=== PATIENT | male | born 1950 | race Caucasian/White ===

== ENCOUNTER 2019-11-20 10:07 | Inpatient (IN) | payer MEDICARE, BC ==
--- NOTE | 2019-11-20 11:50 | EDM.PDOC ---
ED HPI GENERAL MEDICAL PROBLEM - General Chief Complaint: Respiratory Problem Stated Complaint: COVID + HAVING DIABETIC ISSUES Time Seen by Provider: 11/20/19 11:32 Source of Information: Reports: Patient, RN Notes Reviewed History Limitations: Reports: No Limitations - History of Present Illness INITIAL COMMENTS - FREE TEXT/NARRATIVE: Patient is a 69-year-old male who presents to the ED for the evaluation of his ongoing COVID-19. Patient notes he was diagnosed with COVID-19 on November 09, and states he has been having a dry cough, shortness of breath, low-grade fever ever since then. He is also experiencing decreased appetite and generalized weakness as he states he is just not hungry. He is a type II diabetic, his blood glucose was 185 at time of triage here. Temperature is 99.7 F, patient's pulse is 84 bpm, respiratory rate is 18, blood pressure is 150/75, and his O2 sats are 91% on 2L NC I did take him off of the oxygen, and it did drop to 82% on room air. He is not feeling too short of breath with this, so we will keep the oxygen off until we get the blood gas and then put the oxygen back on the 2 L. He has not had any sort of hospitalization for his COVID-19, and other than being diabetic, he states that he was fairly healthy. He did see Dr. Hunt on October 31, and states that everything was just fine. He notes that he lives at home, and his is been sick as well, but not as sick as he has been. He is not sure where he could have gotten COVID-19 - Related Data Allergies Allergy/AdvReac Type Severity Reaction Status Date / Time Penicillins Allergy Cannot Verified 11/20/19 10:28 Remember Home Meds: Home Meds Enalapril [Vasotec] 10 mg PO DAILY 11/20/19 [History] Metoprolol Succinate [Kapspargo Sprinkle] 50 mg PO DAILY 11/20/19 [History] Ozempic. 1 dose INJECT WEEKLY 11/20/19 [History] Rosuvastatin [Crestor] 5 mg PO DAILY 11/20/19 [History] Tamsulosin [Flomax] 0.4 mg PO DAILY 11/20/19 [History] amLODIPine [Norvasc] 5 mg PO DAILY 11/20/19 [History] glipiZIDE [Glipizide ER] 5 mg PO DAILY 11/20/19 [History] hydroCHLOROthiazide [Hydrochlorothiazide] 25 mg PO DAILY 11/20/19 [History] metFORMIN [Glucophage] 100 mg PO DAILY 11/20/19 [History] Past Medical History Cardiovascular History: Reports: High Cholesterol, Hypertension Musculoskeletal History: Reports: Arthritis Endocrine/Metabolic History: Reports: Diabetes, Type II - Infectious Disease History Infectious Disease History: Reports: Novel Coronavirus - Past Surgical History GI Surgical History: Reports: Cholecystectomy Social & Family History - Tobacco Use Smoking Status *Q: Never Smoker Second Hand Smoke Exposure: No - Caffeine Use Caffeine Use: Reports: Coffee - Recreational Drug Use Recreational Drug Use: No ED ROS GENERAL - Review of Systems Review Of Systems: Comprehensive ROS is negative, except as noted in HPI. ED EXAM, GENERAL - Physical Exam Exam: See Below Exam Limited By: No Limitations General Appearance: Alert, WD/WN, No Apparent Distress Respiratory/Chest: No Respiratory Distress, Lungs Clear, No Accessory Muscle Use, Chest Non-Tender, Decreased Breath Sounds (diffuse bilaterally) Cardiovascular: Normal Peripheral Pulses, Regular Rate, Rhythm, No Edema, No Murmur GI/Abdominal: Normal Bowel Sounds, Soft, Non-Tender, No Distention, No Mass Extremities: Normal Inspection, Normal Capillary Refill Neurological: Alert, Oriented, Normal Cognition, No Motor/Sensory Deficits Psychiatric: Normal Affect, Normal Mood Skin Exam: Warm, Dry, Intact, Normal Color, No Rash EKG INTERPRETATION EKG Date: 11/20/19 Time: 11:58 Rhythm: NSR Rate (Beats/Min): 87 P-Wave: Present QRS: RBBB (and LAFB) QT: Normal Comparison: NA - No Prior EKG EKG Interpretation Comments: 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 Probable left ventricular hypertrophy, anterior Q waves possibly due to left ventricular hypertrophy. EKG was reviewed by myself, Dr. Stephens, and Dr. Cat. Course - Vital Signs Last Recorded V/S: Last Vital Signs Temp 99.7 F 11/20/19 10:25 Pulse 84 11/20/19 10:25 Resp 18 11/20/19 10:25 BP 150/75 H 11/20/19 10:25 Pulse Ox 91 L 11/20/19 10:25 - Orders/Labs/Meds Orders: Active Orders 24 hr Category Date Time Status Admission Status [Patient Status] [ADT] Routine ADT 11/20/19 15:36 Active EKG Documentation Completion [RC] STAT Care 11/20/19 11:50 Active Oxygen Therapy Adult [Oxygen Therapy] [RC] ASDIRECTED Care 11/20/19 11:56 Active Ang Chest [CT] Stat Exams 11/20/19 14:03 Taken Chest 1V Frontal [CR] Stat Exams 11/20/19 11:50 Taken CULTURE BLOOD [BC] Stat Lab 11/20/19 12:10 Received CULTURE BLOOD [BC] Stat Lab 11/20/19 12:20 Received MYCOPLASMA PNEUMONIAE IGM AB [CHEM] Stat Lab 11/20/19 12:10 Received Sodium Chloride 0.9% [Normal Saline] 1,000 ml Med 11/20/19 11:51 Active IV ONETIME Sodium Chloride 0.9% [Normal Saline] 100 ml Med 11/20/19 14:30 Active IV ASDIRECTED Blood Culture x2 Reflex Set [OM.PC] Stat Oth 11/20/19 11:50 Ordered Isolation [COMM] Routine Oth 11/20/19 11:50 Ordered Medication Orders Sodium Chloride (Normal Saline) 1,000 mls @ 150 mls/hr IV ONETIME ONE Stop: 11/20/19 18:30 Last Admin: 11/20/19 12:12 Dose: 150 mls/hr Documented by: RONDA Sodium Chloride (Normal Saline) 100 mls @ 60 mls/hr IV ASDIRECTED VIOLETA Last Admin: 11/20/19 15:05 Dose: 60 mls/hr Documented by: RACHEL Labs: Laboratory Tests 11/20/19 11/20/19 11/20/19 Range/Units 10:23 12:10 12:10 WBC 5.10 (4.23-9.07) K/mm3 RBC 4.83 (4.63-6.08) M/mm3 Hgb 14.8 (13.7-17.5) gm/dl Hct 45.4 (40.1-51.0) % MCV 94.0 H (79.0-92.2) fl MCH 30.6 (25.7-32.2) pg MCHC 32.6 (32.2-35.5) g/dl RDW Std Deviation 44.2 H (35.1-43.9) fL Plt Count 178 (163-337) K/mm3 MPV 10.0 (9.4-12.3) fl Neutrophils % (Manual) 81 H (40-60) % Band Neutrophils % 0 (0-10) % Lymphocytes % (Manual) 13 L (20-40) % Atypical Lymphs % 0 % Monocytes % (Manual) 6 (2-10) % Eosinophils % (Manual) 0 L (0.8-7.0) % Basophils % (Manual) 0 L (0.2-1.2) Platelet Estimate Adequate RBC Morph Comment Normal PT (9.7-11.7) SECONDS INR APTT (22-31) SECONDS D-Dimer, Quantitative (0.19-0.50) mg/L Puncture Site ABG pH (7.35-7.45) ABG pCO2 (35.0-45.0) mmHg ABG pO2 (80.0-100.0) mmHg ABG HCO3 (22.0-26.0) meq/L ABG O2 Saturation (96.0-97.0) % ABG Base Excess (-2-2.0) Randy Test A-a Gradient mmHg O2 Delivery Device Oxygen Flow Rate Sodium (136-145) mEq/L Potassium (3.5-5.1) mEq/L Chloride (98-107) mEq/L Carbon Dioxide (21-32) mEq/L Anion Gap (5-15) BUN (7-18) mg/dL Creatinine (0.7-1.3) mg/dL Est Cr Clr Drug Dosing mL/min Estimated GFR (MDRD) (>60) mL/min BUN/Creatinine Ratio (14-18) Glucose (83-115) mg/dL POC Glucose 185 H (83-110) mg/dL Lactic Acid (0.4-2.0) mmol/L Calcium (8.5-10.1) mg/dL Magnesium (1.8-2.4) mg/dl Ferritin (26-388) ng/ml Total Bilirubin (0.2-1.0) mg/dL AST (15-37) U/L ALT (16-63) U/L Alkaline Phosphatase (46-116) U/L Lactate Dehydrogenase (85-227) U/L Troponin I (0.00-0.056) ng/mL C-Reactive Protein 9.5 H* (<1.0) mg/dL NT-Pro-B Natriuret Pep (0-125) pg/mL Total Protein (6.4-8.2) g/dl Albumin (3.4-5.0) g/dl Globulin gm/dL Albumin/Globulin Ratio (1-2) 11/20/19 11/20/19 11/20/19 Range/Units 12:10 12:10 12:10 WBC (4.23-9.07) K/mm3 RBC (4.63-6.08) M/mm3 Hgb (13.7-17.5) gm/dl Hct (40.1-51.0) % MCV (79.0-92.2) fl MCH (25.7-32.2) pg MCHC (32.2-35.5) g/dl RDW Std Deviation (35.1-43.9) fL Plt Count (163-337) K/mm3 MPV (9.4-12.3) fl Neutrophils % (Manual) (40-60) % Band Neutrophils % (0-10) % Lymphocytes % (Manual) (20-40) % Atypical Lymphs % % Monocytes % (Manual) (2-10) % Eosinophils % (Manual) (0.8-7.0) % Basophils % (Manual) (0.2-1.2) Platelet Estimate RBC Morph Comment PT 11.1 (9.7-11.7) SECONDS INR 1.04 APTT 28 (22-31) SECONDS D-Dimer, Quantitative 1.77 H (0.19-0.50) mg/L Puncture Site ABG pH (7.35-7.45) ABG pCO2 (35.0-45.0) mmHg ABG pO2 (80.0-100.0) mmHg ABG HCO3 (22.0-26.0) meq/L ABG O2 Saturation (96.0-97.0) % ABG Base Excess (-2-2.0) Randy Test A-a Gradient mmHg O2 Delivery Device Oxygen Flow Rate Sodium 133 L (136-145) mEq/L Potassium 2.9 L (3.5-5.1) mEq/L Chloride 92 L (98-107) mEq/L Carbon Dioxide 32 (21-32) mEq/L Anion Gap 11.9 (5-15) BUN 21 H (7-18) mg/dL Creatinine 1.4 H (0.7-1.3) mg/dL Est Cr Clr Drug Dosing 56.27 mL/min Estimated GFR (MDRD) 50 (>60) mL/min BUN/Creatinine Ratio 15.0 (14-18) Glucose 193 H (83-115) mg/dL POC Glucose (83-110) mg/dL Lactic Acid (0.4-2.0) mmol/L Calcium 8.7 (8.5-10.1) mg/dL Magnesium 1.8 (1.8-2.4) mg/dl Ferritin (26-388) ng/ml Total Bilirubin 1.6 H (0.2-1.0) mg/dL AST 95 H (15-37) U/L ALT 90 H (16-63) U/L Alkaline Phosphatase 49 (46-116) U/L Lactate Dehydrogenase 410 H (85-227) U/L Troponin I 0.146 H* (0.00-0.056) ng/mL C-Reactive Protein (<1.0) mg/dL NT-Pro-B Natriuret Pep 559 H (0-125) pg/mL Total Protein 7.0 (6.4-8.2) g/dl Albumin 2.9 L (3.4-5.0) g/dl Globulin 4.1 gm/dL Albumin/Globulin Ratio 0.7 L (1-2) 11/20/19 11/20/19 11/20/19 Range/Units 12:10 12:10 12:20 WBC (4.23-9.07) K/mm3 RBC (4.63-6.08) M/mm3 Hgb (13.7-17.5) gm/dl Hct (40.1-51.0) % MCV (79.0-92.2) fl MCH (25.7-32.2) pg MCHC (32.2-35.5) g/dl RDW Std Deviation (35.1-43.9) fL Plt Count (163-337) K/mm3 MPV (9.4-12.3) fl Neutrophils % (Manual) (40-60) % Band Neutrophils % (0-10) % Lymphocytes % (Manual) (20-40) % Atypical Lymphs % % Monocytes % (Manual) (2-10) % Eosinophils % (Manual) (0.8-7.0) % Basophils % (Manual) (0.2-1.2) Platelet Estimate RBC Morph Comment PT (9.7-11.7) SECONDS INR APTT (22-31) SECONDS D-Dimer, Quantitative (0.19-0.50) mg/L Puncture Site Lt radial ABG pH 7.52 H (7.35-7.45) ABG pCO2 35.2 (35.0-45.0) mmHg ABG pO2 60.0 L (80.0-100.0) mmHg ABG HCO3 28.6 H (22.0-26.0) meq/L ABG O2 Saturation 91.8 L (96.0-97.0) % ABG Base Excess 6.0 H (-2-2.0) Randy Test Positive A-a Gradient 124 mmHg O2 Delivery Device Nasal cannula Oxygen Flow Rate 3.0 Sodium (136-145) mEq/L Potassium (3.5-5.1) mEq/L Chloride (98-107) mEq/L Carbon Dioxide (21-32) mEq/L Anion Gap (5-15) BUN (7-18) mg/dL Creatinine (0.7-1.3) mg/dL Est Cr Clr Drug Dosing mL/min Estimated GFR (MDRD) (>60) mL/min BUN/Creatinine Ratio (14-18) Glucose (83-115) mg/dL POC Glucose (83-110) mg/dL Lactic Acid 1.6 (0.4-2.0) mmol/L Calcium (8.5-10.1) mg/dL Magnesium (1.8-2.4) mg/dl Ferritin 2210 H (26-388) ng/ml Total Bilirubin (0.2-1.0) mg/dL AST (15-37) U/L ALT (16-63) U/L Alkaline Phosphatase (46-116) U/L Lactate Dehydrogenase (85-227) U/L Troponin I (0.00-0.056) ng/mL C-Reactive Protein (<1.0) mg/dL NT-Pro-B Natriuret Pep (0-125) pg/mL Total Protein (6.4-8.2) g/dl Albumin (3.4-5.0) g/dl Globulin gm/dL Albumin/Globulin Ratio (1-2) Meds: Medications Generic Name Dose Route Start Last Admin Trade Name Freq PRN Reason Stop Dose Admin Sodium Chloride 1,000 mls @ 150 mls/hr 11/20/19 11:51 11/20/19 12:12 Normal Saline IV 11/20/19 18:30 150 mls/hr ONETIME ONE Administration Sodium Chloride 100 mls @ 60 mls/hr 11/20/19 14:30 11/20/19 15:05 Normal Saline IV 60 mls/hr ASDIRECTED VIOLETA Administration Discontinued Medications Generic Name Dose Route Start Last Admin Trade Name Freq PRN Reason Stop Dose Admin Iopamidol 100 ml 11/20/19 14:16 11/20/19 15:05 Isovue-370 (76%) IVPUSH 11/20/19 14:17 100 ml ONETIME ONE Administration Potassium Chloride 40 meq 11/20/19 15:30 11/20/19 15:55 Klor-Con M20 PO 11/20/19 15:31 40 meq ONETIME ONE Administration Sodium Chloride 10 ml 11/20/19 14:16 11/20/19 15:05 Saline Flush FLUSH 11/20/19 14:17 10 ml ONETIME ONE Administration - Re-Assessments/Exams Free Text/Narrative Re-Assessment/Exam: 11/20/19 11:55 Patient presents to the ED for the evaluation of his COVID-19. Blood sugar was okay at time of triage, we will get a multitude of labs along with chest x-ray, EKG for evaluation of his illness. He will be given fluids at 150 mils per hour for initial management, as he states he has not been eating or drinking much. He is likely dehydrated. After taking his oxygen off in the room, he did drop down to 82% on room air. He is not feeling too short of breath at this time, we will observe this, while waiting for a blood gas, and then apply oxygen as needed. Due to him needing supplemental oxygen, it is likely that he could need hospital admission. 11/20/19 16:12 The patient's troponin was elevated, I did talk with Dr. Jason, cardiology at [facility] for management of this, and he does believe that this could be due to myocarditis related to the patient's COVID-19 status, he states it would probably be okay for us to admit him, do serial troponins, give heparin and possibly get echo tomorrow for further evaluation. I did talk with Dr. Cat about this, and he did ultimately accept. Departure - Departure Time of Disposition: 16:13 Disposition: Admitted As Inpatient 64 Condition: Fair Clinical Impression: Hypoxia, COVID-19, Elevated troponin I level - Discharge Information *PRESCRIPTION DRUG MONITORING PROGRAM REVIEWED*: No *COPY OF PRESCRIPTION DRUG MONITORING REPORT IN PATIENT LYLA: No Referrals: John Hunt MD [Primary Care Provider] - Forms: ED Department Discharge Sepsis Event Note (ED) - Evaluation Sepsis Screening Result: No Definite Risk - Focused Exam Vital Signs: Vital Signs Temp Pulse Resp BP Pulse Ox Pulse Ox 11/20/19 10:25 99.7 F 84 18 150/75 H 91 L 11/20/19 10:20 93 L - My Orders Last 24 Hours: My Active Orders 11/20/19 11:50 EKG Documentation Completion [RC] STAT Chest 1V Frontal [CR] Stat Blood Culture x2 Reflex Set [OM.PC] Stat Isolation [COMM] Routine 11/20/19 11:51 Sodium Chloride 0.9% [Normal Saline] 1,000 ml IV ONETIME 11/20/19 11:56 Oxygen Therapy Adult [Oxygen Therapy] [RC] ASDIRECTED 11/20/19 12:10 CULTURE BLOOD [BC] Stat MYCOPLASMA PNEUMONIAE IGM AB [CHEM] Stat 11/20/19 12:20 CULTURE BLOOD [BC] Stat 11/20/19 14:03 Ang Chest [CT] Stat 11/20/19 14:30 Sodium Chloride 0.9% [Normal Saline] 100 ml IV ASDIRECTED 11/20/19 15:36 Admission Status [Patient Status] [ADT] Routine - Assessment/Plan Last 24 Hours: My Active Orders 11/20/19 11:50 EKG Documentation Completion [RC] STAT Chest 1V Frontal [CR] Stat Blood Culture x2 Reflex Set [OM.PC] Stat Isolation [COMM] Routine 11/20/19 11:51 Sodium Chloride 0.9% [Normal Saline] 1,000 ml IV ONETIME 11/20/19 11:56 Oxygen Therapy Adult [Oxygen Therapy] [RC] ASDIRECTED 11/20/19 12:10 CULTURE BLOOD [BC] Stat MYCOPLASMA PNEUMONIAE IGM AB [CHEM] Stat 11/20/19 12:20 CULTURE BLOOD [BC] Stat 11/20/19 14:03 Ang Chest [CT] Stat 11/20/19 14:30 Sodium Chloride 0.9% [Normal Saline] 100 ml IV ASDIRECTED 11/20/19 15:36 Admission Status [Patient Status] [ADT] Routine
[2019-11-20] MEDS ORDERED: Sodium Chloride 0.9% 1,000 ML IV ONE (11:51)
[2019-11-20] MEDS ORDERED: Sodium Chloride 0.9% 10 ML Syringe FLUSH ONE (14:16)
[2019-11-20] MEDS ORDERED: Iopamidol 755 Mg/ML 100 ML Bottle IVPUSH ONE (14:16)
[2019-11-20] MEDS ORDERED: Sodium Chloride 0.9% 100 ML IV SCH (14:30)
[2019-11-20] MEDS ORDERED: Potassium Chloride 20 MEQ Tab.ER PO ONE (15:30)
[2019-11-20] MEDS ORDERED: 50% Dextrose in Water 50 ML Syringe IVPUSH PRN (19:40)
--- NOTE | 2019-11-20 20:18 | PCM.HP.2 ---
H&P History of Present Illness - General Date of Service: 11/20/19 Admit Problem/Dx: Admission Diagnosis/Problem Admission Diagnosis/Problem Hypoxia - History of Present Illness Initial Comments - Free Text/Narative: 69-year-old male with recent diagnosis of COVID-19. Patient was a poor historian, therefore some of the history differs from the emergency department providers note. Patient told me that he was diagnosed with COVID-19 this last , November 17, 2019. The emergency providers note states he was diagnosed on November 09 which is also a . Patient currently states he has had having shortness of breath, but was fairly elusive in regards to his other symptoms. It appears that he has had a dry cough, shortness of breath, low- grade fever, anorexia, and generalized weakness. Patient also told me he had no medical conditions but it appears he is a type II diabetic. When he presented to the emergency department he was hypoxemic and his oxygen saturation went to 91% on 2 L. When the provider stopped his oxygen it did drop back down to 82% on room air. Apparently he did not feel short of breath at that time. Apparently his is also been sick. Unknown where he contracted the SARS-CoV-2 virus. Initial labs were found to be: WBC 5.1, hemoglobin 14.8, platelets 178, cody trophils 81% with 0% bands, [id number] glucose 185, C-reactive protein 9.5, d-dimer 1.77, INR 1.04, sodium 133, potassium 2.9, BUN 21, creatinine 1.4, estimated GFR 50 (unknown baseline GFR) troponin 0 0.146, LDH 410, total bilirubin 1.6, AST 95, ALT 90, proBNP 559, albumin 2.9. Ferritin was elevated at 2210, lactic acid 1.6. ABG: pH 7.52, PCO2 35.2, PO2 60, bicarb 28.6, on 3 L nasal cannula. 2. CT angiogram of the chest showed no pulmonary embolism. Multifocal peripheral airspace opacity concerning for multi lobar pneumonia. Consider atypical variants. 3. Cardiomegaly and mild to moderate grade coronary atherosclerosis. 4. Prominent hilar lymph nodes are present. There are likely reactive to the pulmonary parenchymal process. EKG showed a sinus rhythm at 87 bpm. Right bundle branch block with left anterior fascicular block noted. Dr. Jason in cardiology from [facility] in [place] was consulted. He felt this could be myocarditis related to the patient's COVID status. He would recommend serial troponins and echo in the morning. Consider heparin if it is appropriate based on clinical picture. - Related Data Allergies/Adverse Reactions: Allergies Allergy/AdvReac Type Severity Reaction Status Date / Time Penicillins Allergy Cannot Verified 11/20/19 18:36 Remember Home Medications: Home Meds Enalapril [Vasotec] 10 mg PO DAILY 11/20/19 [History] Metoprolol Succinate [Kapspargo Sprinkle] 50 mg PO DAILY 11/20/19 [History] Ozempic. 1 dose INJECT WEEKLY 11/20/19 [History] Rosuvastatin [Crestor] 5 mg PO DAILY 11/20/19 [History] Tamsulosin [Flomax] 0.4 mg PO DAILY 11/20/19 [History] amLODIPine [Norvasc] 5 mg PO DAILY 11/20/19 [History] glipiZIDE [Glipizide ER] 5 mg PO DAILY 11/20/19 [History] hydroCHLOROthiazide [Hydrochlorothiazide] 25 mg PO DAILY 11/20/19 [History] metFORMIN [Glucophage] 100 mg PO DAILY 11/20/19 [History] Past Medical History HEENT History: Reports: Hard of Hearing, Other (See Below) Other HEENT History: wears glasses, has hearing aids bilaterally Cardiovascular History: Reports: High Cholesterol, Hypertension Genitourinary History: Reports: Renal Calculus Musculoskeletal History: Reports: Arthritis Endocrine/Metabolic History: Reports: Diabetes, Type II - Infectious Disease History Infectious Disease History: Reports: Novel Coronavirus - Past Surgical History HEENT Surgical History: Reports: None Cardiovascular Surgical History: Reports: None GI Surgical History: Reports: Cholecystectomy, Colonoscopy Male Surgical History: Reports: None Endocrine Surgical History: Reports: None Musculoskeletal Surgical History: Reports: None Social & Family History - Family History Family Medical History: Noncontributory - Tobacco Use Smoking Status *Q: Never Smoker Second Hand Smoke Exposure: No - Caffeine Use Caffeine Use: Reports: Coffee - Recreational Drug Use Recreational Drug Use: No H&P Review of Systems - Review of Systems: Review Of Systems: Comprehensive ROS is negative, except as noted in HPI. Exam - Exam Exam: See Below - Vital Signs Vital Signs: Last Vital Signs Temp 99.7 F 11/20/19 18:33 Pulse 87 11/20/19 18:33 Resp 20 11/20/19 18:33 BP 147/71 H 11/20/19 18:33 Pulse Ox 100 11/20/19 18:33 Weight: 112.083 kg - Exam Quality Assessment: Supplemental Oxygen General: Alert, Cooperative. No: Oriented HEENT: Conjunctiva Clear, Mucosa Moist & Edmond, Pupils Reactive. No: Hearing Intact Neck: Supple, Trachea Midline, 2 Lungs: Normal Respiratory Effort, Rales (Bibasilar) Cardiovascular: Regular Rate, Regular Rhythm GI/Abdominal Exam: Normal Bowel Sounds, Soft, Non-Tender, No Distention Extremities: Normal Inspection, Normal Range of Motion, Non-Tender, No Pedal Edema, Normal Capillary Refill Peripheral Pulses: 1+: Posterior Tibial (L), Posterior Tibial (R), Dorsalis Pedis (L), Dorsalis Pedis (R) Skin: Warm, Dry, Intact Neuro Extensive - Mental Status: Alert, Normal Mood/Affect, Normal Cognition, Disorientation to Time Psychiatric: Alert, Normal Affect, Normal Mood - Patient Data Lab Results Last 24 hrs: Laboratory Results - last 24 hr 11/20/19 11/20/19 11/20/19 Range/Units 10:23 12:10 12:10 WBC 5.10 (4.23-9.07) K/mm3 RBC 4.83 (4.63-6.08) M/mm3 Hgb 14.8 (13.7-17.5) gm/dl Hct 45.4 (40.1-51.0) % MCV 94.0 H (79.0-92.2) fl MCH 30.6 (25.7-32.2) pg MCHC 32.6 (32.2-35.5) g/dl RDW Std Deviation 44.2 H (35.1-43.9) fL Plt Count 178 (163-337) K/mm3 MPV 10.0 (9.4-12.3) fl Neutrophils % (Manual) 81 H (40-60) % Band Neutrophils % 0 (0-10) % Lymphocytes % (Manual) 13 L (20-40) % Atypical Lymphs % 0 % Monocytes % (Manual) 6 (2-10) % Eosinophils % (Manual) 0 L (0.8-7.0) % Basophils % (Manual) 0 L (0.2-1.2) Platelet Estimate Adequate RBC Morph Comment Normal PT (9.7-11.7) SECONDS INR APTT (22-31) SECONDS D-Dimer, Quantitative (0.19-0.50) mg/L Puncture Site ABG pH (7.35-7.45) ABG pCO2 (35.0-45.0) mmHg ABG pO2 (80.0-100.0) mmHg ABG HCO3 (22.0-26.0) meq/L ABG O2 Saturation (96.0-97.0) % ABG Base Excess (-2-2.0) Randy Test A-a Gradient mmHg O2 Delivery Device Oxygen Flow Rate Sodium (136-145) mEq/L Potassium (3.5-5.1) mEq/L Chloride (98-107) mEq/L Carbon Dioxide (21-32) mEq/L Anion Gap (5-15) BUN (7-18) mg/dL Creatinine (0.7-1.3) mg/dL Est Cr Clr Drug Dosing mL/min Estimated GFR (MDRD) (>60) mL/min BUN/Creatinine Ratio (14-18) Glucose (83-115) mg/dL POC Glucose 185 H (83-110) mg/dL Lactic Acid (0.4-2.0) mmol/L Calcium (8.5-10.1) mg/dL Magnesium (1.8-2.4) mg/dl Ferritin (26-388) ng/ml Total Bilirubin (0.2-1.0) mg/dL AST (15-37) U/L ALT (16-63) U/L Alkaline Phosphatase (46-116) U/L Lactate Dehydrogenase (85-227) U/L Troponin I (0.00-0.056) ng/mL C-Reactive Protein 9.5 H* (<1.0) mg/dL NT-Pro-B Natriuret Pep (0-125) pg/mL Total Protein (6.4-8.2) g/dl Albumin (3.4-5.0) g/dl Globulin gm/dL Albumin/Globulin Ratio (1-2) Mycoplasma pneumon IgM (NEGATIVE) 10/04/20 10/04/20 10/04/20 Range/Units 12:10 12:10 12:10 WBC (4.23-9.07) K/mm3 RBC (4.63-6.08) M/mm3 Hgb (13.7-17.5) gm/dl Hct (40.1-51.0) % MCV (79.0-92.2) fl MCH (25.7-32.2) pg MCHC (32.2-35.5) g/dl RDW Std Deviation (35.1-43.9) fL Plt Count (163-337) K/mm3 MPV (9.4-12.3) fl Neutrophils % (Manual) (40-60) % Band Neutrophils % (0-10) % Lymphocytes % (Manual) (20-40) % Atypical Lymphs % % Monocytes % (Manual) (2-10) % Eosinophils % (Manual) (0.8-7.0) % Basophils % (Manual) (0.2-1.2) Platelet Estimate RBC Morph Comment PT 11.1 (9.7-11.7) SECONDS INR 1.04 APTT 28 (22-31) SECONDS D-Dimer, Quantitative 1.77 H (0.19-0.50) mg/L Puncture Site ABG pH (7.35-7.45) ABG pCO2 (35.0-45.0) mmHg ABG pO2 (80.0-100.0) mmHg ABG HCO3 (22.0-26.0) meq/L ABG O2 Saturation (96.0-97.0) % ABG Base Excess (-2-2.0) Randy Test A-a Gradient mmHg O2 Delivery Device Oxygen Flow Rate Sodium 133 L (136-145) mEq/L Potassium 2.9 L (3.5-5.1) mEq/L Chloride 92 L (98-107) mEq/L Carbon Dioxide 32 (21-32) mEq/L Anion Gap 11.9 (5-15) BUN 21 H (7-18) mg/dL Creatinine 1.4 H (0.7-1.3) mg/dL Est Cr Clr Drug Dosing 56.27 mL/min Estimated GFR (MDRD) 50 (>60) mL/min BUN/Creatinine Ratio 15.0 (14-18) Glucose 193 H (83-115) mg/dL POC Glucose (83-110) mg/dL Lactic Acid (0.4-2.0) mmol/L Calcium 8.7 (8.5-10.1) mg/dL Magnesium 1.8 (1.8-2.4) mg/dl Ferritin (26-388) ng/ml Total Bilirubin 1.6 H (0.2-1.0) mg/dL AST 95 H (15-37) U/L ALT 90 H (16-63) U/L Alkaline Phosphatase 49 (46-116) U/L Lactate Dehydrogenase 410 H (85-227) U/L Troponin I 0.146 H* (0.00-0.056) ng/mL C-Reactive Protein (<1.0) mg/dL NT-Pro-B Natriuret Pep 559 H (0-125) pg/mL Total Protein 7.0 (6.4-8.2) g/dl Albumin 2.9 L (3.4-5.0) g/dl Globulin 4.1 gm/dL Albumin/Globulin Ratio 0.7 L (1-2) Mycoplasma pneumon IgM (NEGATIVE) 11/20/19 11/20/19 11/20/19 Range/Units 12:10 12:10 12:10 WBC (4.23-9.07) K/mm3 RBC (4.63-6.08) M/mm3 Hgb (13.7-17.5) gm/dl Hct (40.1-51.0) % MCV (79.0-92.2) fl MCH (25.7-32.2) pg MCHC (32.2-35.5) g/dl RDW Std Deviation (35.1-43.9) fL Plt Count (163-337) K/mm3 MPV (9.4-12.3) fl Neutrophils % (Manual) (40-60) % Band Neutrophils % (0-10) % Lymphocytes % (Manual) (20-40) % Atypical Lymphs % % Monocytes % (Manual) (2-10) % Eosinophils % (Manual) (0.8-7.0) % Basophils % (Manual) (0.2-1.2) Platelet Estimate RBC Morph Comment PT (9.7-11.7) SECONDS INR APTT (22-31) SECONDS D-Dimer, Quantitative (0.19-0.50) mg/L Puncture Site ABG pH (7.35-7.45) ABG pCO2 (35.0-45.0) mmHg ABG pO2 (80.0-100.0) mmHg ABG HCO3 (22.0-26.0) meq/L ABG O2 Saturation (96.0-97.0) % ABG Base Excess (-2-2.0) Randy Test A-a Gradient mmHg O2 Delivery Device Oxygen Flow Rate Sodium (136-145) mEq/L Potassium (3.5-5.1) mEq/L Chloride (98-107) mEq/L Carbon Dioxide (21-32) mEq/L Anion Gap (5-15) BUN (7-18) mg/dL Creatinine (0.7-1.3) mg/dL Est Cr Clr Drug Dosing mL/min Estimated GFR (MDRD) (>60) mL/min BUN/Creatinine Ratio (14-18) Glucose (83-115) mg/dL POC Glucose (83-110) mg/dL Lactic Acid 1.6 (0.4-2.0) mmol/L Calcium (8.5-10.1) mg/dL Magnesium (1.8-2.4) mg/dl Ferritin 2210 H (26-388) ng/ml Total Bilirubin (0.2-1.0) mg/dL AST (15-37) U/L ALT (16-63) U/L Alkaline Phosphatase (46-116) U/L Lactate Dehydrogenase (85-227) U/L Troponin I (0.00-0.056) ng/mL C-Reactive Protein (<1.0) mg/dL NT-Pro-B Natriuret Pep (0-125) pg/mL Total Protein (6.4-8.2) g/dl Albumin (3.4-5.0) g/dl Globulin gm/dL Albumin/Globulin Ratio (1-2) Mycoplasma pneumon IgM Negative (NEGATIVE) 11/20/19 Range/Units 12:20 WBC (4.23-9.07) K/mm3 RBC (4.63-6.08) M/mm3 Hgb (13.7-17.5) gm/dl Hct (40.1-51.0) % MCV (79.0-92.2) fl MCH (25.7-32.2) pg MCHC (32.2-35.5) g/dl RDW Std Deviation (35.1-43.9) fL Plt Count (163-337) K/mm3 MPV (9.4-12.3) fl Neutrophils % (Manual) (40-60) % Band Neutrophils % (0-10) % Lymphocytes % (Manual) (20-40) % Atypical Lymphs % % Monocytes % (Manual) (2-10) % Eosinophils % (Manual) (0.8-7.0) % Basophils % (Manual) (0.2-1.2) Platelet Estimate RBC Morph Comment PT (9.7-11.7) SECONDS INR APTT (22-31) SECONDS D-Dimer, Quantitative (0.19-0.50) mg/L Puncture Site Lt radial ABG pH 7.52 H (7.35-7.45) ABG pCO2 35.2 (35.0-45.0) mmHg ABG pO2 60.0 L (80.0-100.0) mmHg ABG HCO3 28.6 H (22.0-26.0) meq/L ABG O2 Saturation 91.8 L (96.0-97.0) % ABG Base Excess 6.0 H (-2-2.0) Randy Test Positive A-a Gradient 124 mmHg O2 Delivery Device Nasal cannula Oxygen Flow Rate 3.0 Sodium (136-145) mEq/L Potassium (3.5-5.1) mEq/L Chloride (98-107) mEq/L Carbon Dioxide (21-32) mEq/L Anion Gap (5-15) BUN (7-18) mg/dL Creatinine (0.7-1.3) mg/dL Est Cr Clr Drug Dosing mL/min Estimated GFR (MDRD) (>60) mL/min BUN/Creatinine Ratio (14-18) Glucose (83-115) mg/dL POC Glucose (83-110) mg/dL Lactic Acid (0.4-2.0) mmol/L Calcium (8.5-10.1) mg/dL Magnesium (1.8-2.4) mg/dl Ferritin (26-388) ng/ml Total Bilirubin (0.2-1.0) mg/dL AST (15-37) U/L ALT (16-63) U/L Alkaline Phosphatase (46-116) U/L Lactate Dehydrogenase (85-227) U/L Troponin I (0.00-0.056) ng/mL C-Reactive Protein (<1.0) mg/dL NT-Pro-B Natriuret Pep (0-125) pg/mL Total Protein (6.4-8.2) g/dl Albumin (3.4-5.0) g/dl Globulin gm/dL Albumin/Globulin Ratio (1-2) Mycoplasma pneumon IgM (NEGATIVE) Result Diagrams: 11/20/19 12:10 11/20/19 12:10 Sepsis Event Note - Evaluation Sepsis Screening Result: No Definite Risk - Focused Exam Vital Signs: Vital Signs Temp Temp Pulse Pulse Resp BP BP 11/20/19 18:33 99.7 F 87 20 147/71 H 11/20/19 10:25 99.7 F 84 18 150/75 H 11/20/19 10:20 Pulse Ox Pulse Ox 11/20/19 18:33 100 11/20/19 10:25 91 L 11/20/19 10:20 93 L Problem List Initiated/Reviewed/Updated: Yes Orders Last 24hrs: Active Orders 24 hr Category Date Time Status Admission Status [Patient Status] [ADT] Routine ADT 11/20/19 15:36 Active Blood Glucose Check, Bedside [RC] QIDACANDBED Care 11/20/19 19:40 Active Oxygen Therapy Adult [Oxygen Therapy] [RC] ASDIRECTED Care 11/20/19 11:56 Active Up With Assistance [RC] ASDIRECTED Care 11/20/19 19:46 Active VTE/DVT Education [RC] PER UNIT ROUTINE Care 11/20/19 19:47 Active Vital Signs [RC] Q4H Care 11/20/19 19:47 Active Consistent Carbohydrate Diet [DIET] Diet 11/20/19 Dinner Active Ang Chest [CT] Stat Exams 11/20/19 14:03 Taken Chest 1V Frontal [CR] Stat Exams 11/20/19 11:50 Taken CULTURE BLOOD [BC] Stat Lab 11/20/19 12:10 Received CULTURE BLOOD [BC] Stat Lab 11/20/19 12:20 Received TROPONIN I [CHEM] Stat Lab 11/20/19 20:04 Received Acetaminophen [TylenoL] Med 11/20/19 19:46 Active 650 mg PO Q4H PRN Alogliptin Benzoate [Alogliptin] Med 11/21/19 09:00 Pending 25 mg PO DAILY Azithromycin [Zithromax] 500 mg Med 11/20/19 21:00 Active Sodium Chloride 0.9% [Normal Saline] 250 ml IV Q24H Dextrose 50% in Water Med 11/20/19 19:40 Active 50 ml IVPUSH ASDIRECTED PRN Enoxaparin [Lovenox] Med 11/20/19 21:00 Active 40 mg SUBCUT BEDTIME Insulin Lispro [HumaLOG] Med 11/20/19 22:00 Active See Protocol SUBCUT QIDACANDBED Metoprolol Succinate [Kapspargo Sprinkle] Med 11/21/19 09:00 Pending 50 mg PO DAILY Remdesivir (Eua) [Remdesivir (EUA)] 100 mg Med 11/21/19 20:00 Active Sodium Chloride 0.9% [Normal Saline] 100 ml IV Q24H Rosuvastatin [Crestor] Med 11/21/19 09:00 Active 5 mg PO DAILY Sodium Chloride 0.9% [Normal Saline] 100 ml Med 11/20/19 14:30 Active IV ASDIRECTED Tamsulosin [Flomax] Med 11/21/19 09:00 Active 0.4 mg PO DAILY amLODIPine [Norvasc] Med 11/21/19 09:00 Active 5 mg PO DAILY cefTRIAXone [Rocephin] 2 gm Med 11/20/19 20:00 Active Sodium Chloride 0.9% [Normal Saline] 100 ml IV Q24H dexAMETHasone Med 11/20/19 20:00 Active 6 mg PO Q24H Blood Culture x2 Reflex Set [OM.PC] Stat Oth 11/20/19 11:50 Ordered Isolation [COMM] Routine Oth 11/20/19 11:50 Ordered Resuscitation Status Routine Resus Stat 11/20/19 19:46 Ordered Medication Orders Acetaminophen (Tylenol) 650 mg PO Q4H PRN PRN Reason: Pain (Mild 1-3)/fever Alogliptin Benzoate (Alogliptin) 25 mg PO DAILY [facility] Amlodipine Besylate (Norvasc) 5 mg PO DAILY [facility]LETA Dexamethasone (Dexamethasone) 6 mg PO Q24H [facility] Stop: 11/30/19 20:01 Dextrose/Water (Dextrose 50% In Water) 50 ml IVPUSH ASDIRECTED PRN PRN Reason: Hypoglycemia Enoxaparin Sodium (Lovenox) 40 mg SUBCUT BEDTIME VIOLETA Sodium Chloride (Normal Saline) 100 mls @ 60 mls/hr IV ASDIRECTED [facility] Last Admin: 11/20/19 15:05 Dose: 60 mls/hr Documented by: RACHEL Remdesivir 100 mg/ Sodium (Chloride) 100 mls @ 100 mls/hr IV Q24H [facility] Stop: 11/24/19 20:59 Ceftriaxone Sodium 2 gm/ (Sodium Chloride) 100 mls @ 200 mls/hr IV Q24H [facility] Stop: 11/25/19 20:01 Azithromycin 500 mg/ Sodium (Chloride) 250 mls @ 250 mls/hr IV Q24H [facility] Stop: 11/23/19 21:01 Insulin Human Lispro (Humalog) 0 unit SUBCUT QIDACANDBED [facility]; Protocol Non-Formulary Medication (Metoprolol Succinate [Kapspargo Sprinkle]) 50 mg PO DAILY [facility] Rosuvastatin Calcium (Crestor) 5 mg PO DAILY [facility] Tamsulosin HCl (Flomax) 0.4 mg PO DAILY [facility] Assessment/Plan Comment:: 69-year-old male with COVID-19 pneumonia and possible myocarditis. * Oxygen saturations decreased on admission approximately 81% on room air. * Troponin elevated at 0.146. * Cardiology recommended trending troponin, echocardiogram, and heparin. * CT of the chest showed multifocal peripheral airspace opacity concerning for multi lobar pneumonia. Cardiomegaly. Prominent hilar lymph nodes present. * WBC 5.1, CRP 9.5, d-dimer 1.77, LDH 410, ferritin 2210 Acute renal injury versus chronic renal insufficiency Metabolic alkalosis likely secondary to volume contraction. Hyponatremia/hypokalemia * Given 40 mEq of potassium in the emergency department * Started on normal saline. * Need to be especially careful with fluid status in COVID patients. * Would benefit from old records Type 2 diabetes * On metformin, glipizide and Ozempic. * Unknown hemoglobin A1c. * Initial glucose 193 nonfasting Coronary artery disease, hypertension * Moderate grade coronary atherosclerosis found on CT angiogram of the chest * EKG significant for right bundle branch block with left anterior fascicular block. Anterior Q waves and left ventricular hypertrophy. * Home meds include metoprolol, enalapril, rosuvastatin, hydrochlorothiazide, and amlodipine Plan * Admit to floor * Start heparin drip * Serial troponins * Echocardiogram in the morning * FiO2 to keep SPO2 greater than 88% * Start remdesivir and dexamethasone * Rocephin and azithromycin * I spoke with the patient to provide information about remdesivir treatment. I offered the "patient and caregiver SHARON remdesivir fax sheet" to read and review. I stated the drug has been approved by an emergency use authorization process and has not fully been FDA reviewed or approved. Patient meets the [facility] requirements. I shared that the drug may cause l liver abnormalities and infusion related side effects. Additionally, other side effects are possible but are not known as the drug has limited studies. I discussed there are other potential treatment options that are currently not FDA approved to treat COVID-19. Offered opportunity to ask questions and all questions were answered. Patient voiced understanding and agreed to proceed with treatment for Dimas Haynes. * Gentle rehydration secondary to volume contraction and metabolic alkalosis. * Closely follow renal function. Consider Recinos catheter. * Strict I's and O's and daily weights. * Continue metoprolol, rosuvastatin, and amlodipine. * Start sliding scale insulin with glucose monitoring before each meal and bedtime. * Start alogliptin. Was recent study showing that diabetics on sitagliptin had a 50% reduction in mortality. We do not have sitagliptin on formulary. * Hold enalapril and hydrochlorothiazide secondary to renal function and hypovolemia. * CBC, CMP, magnesium, phosphorus, d-dimer, CRP, and hemoglobin A1c in the morning. * Procalcitonin on blood work in the ER. VTE prophylaxis with heparin. CODE STATUS: Patient was not clear about CODE STATUS but it appears he is a full code. Disposition: Admit to floor. Length of stay will be at least 5 days for remdesivir treatment. - Mortality Measure Prognosis:: Poor
[2019-11-20] MEDS ORDERED: Heparin Sodium 5,000 Units/ML Vial IVPUSH ONE (20:45)
[2019-11-20] MEDS ORDERED: Enoxaparin 40 MG/0.4 ML Syringe SUBCUT SCH (21:00)
[2019-11-20] MEDS: Acetaminophen 325 MG Tab PO PRN (21:03)
[2019-11-20] MEDS: Dexamethasone 4 MG Tab PO SCH (21:04)
[2019-11-20] MEDS: cefTRIAXone 2 GM in Sodium Chloride 0.9% 100 ML IV SCH (21:09)
[2019-11-20] MEDS: Heparin Sodium/D5W 25,000 UNITS/500 ML BAG IV SCH (22:47)
[2019-11-20] MEDS: Insulin Lispro 100 Units/ML 3 ML Vial SUBCUT SCH (23:18)
[2019-11-20] MEDS: Azithromycin 500 MG in Sodium Chloride 0.9% 250 ML IV SCH (23:47)
[2019-11-21 03:47] LABS: HEMOGLOBIN A1C 8.1 % (4.50-6.20)
[2019-11-21] MEDS ORDERED: Heparin Sodium 5,000 Units/ML Vial IV ONE ×2 (04:35→13:00)
[2019-11-21] MEDS: amLODIPine 5 MG Tab PO SCH (08:09)
[2019-11-21] MEDS: Rosuvastatin 10 MG Tab PO SCH (08:09)
[2019-11-21] MEDS: Tamsulosin 0.4 MG Cap.ER PO SCH (08:10)
[2019-11-21] MEDS ORDERED: Metoprolol Tartrate 50 MG Tab PO SCH (09:00)
[2019-11-21] MEDS: Insulin Lispro 100 Units/ML 3 ML Vial SUBCUT SCH ×4 (09:25→21:22)
--- NOTE | 2019-11-21 09:46 | PCM.PN ---
- General Info Date of Service: 11/21/19 Admission Dx/Problem (Free Text): Admission Diagnosis/Problem Admission Diagnosis/Problem Hypoxia Subjective Update: Patient has no significant change overnight. He does state he is only minimally short of breath. He was weaned down to 4 L nasal cannula. He did eat all of his breakfast and has had a bowel movement. Functional Status: Reports: Pain Controlled - Review of Systems General: Reports: Fatigue HEENT: Reports: No Symptoms Pulmonary: Reports: Shortness of Breath, Cough Cardiovascular: Reports: No Symptoms Gastrointestinal: Reports: No Symptoms Musculoskeletal: Reports: No Symptoms - Patient Data Vitals - Most Recent: Last Vital Signs Temp 98.8 F 11/21/19 08:06 Pulse 78 11/21/19 08:10 Resp 24 H 11/21/19 08:06 BP 145/87 H 11/21/19 08:10 Pulse Ox 93 L 11/21/19 08:06 Weight - Most Recent: 110.722 kg I&O - Last 24 Hours: Intake & Output 11/20/19 11/21/19 11/21/19 22:59 06:59 14:59 Intake Total 1637 Output Total 800 Balance 837 Lab Results Last 24 Hours: Laboratory Results - last 24 hr 11/20/19 11/20/19 11/20/19 Range/Units 10:23 12:10 12:10 WBC 5.10 (4.23-9.07) K/mm3 RBC 4.83 (4.63-6.08) M/mm3 Hgb 14.8 (13.7-17.5) gm/dl Hct 45.4 (40.1-51.0) % MCV 94.0 H (79.0-92.2) fl MCH 30.6 (25.7-32.2) pg MCHC 32.6 (32.2-35.5) g/dl RDW Std Deviation 44.2 H (35.1-43.9) fL Plt Count 178 (163-337) K/mm3 MPV 10.0 (9.4-12.3) fl Neut % (Auto) (34.0-67.9) % Lymph % (Auto) (21.8-53.1) % [place] % (Auto) (5.3-12.2) % Eos % (Auto) (0.8-7.0) Baso % (Auto) (0.1-1.2) % Neut # (Auto) (1.78-5.38) K/mm3 Lymph # (Auto) (1.32-3.57) K/mm3 [place] # (Auto) (0.30-0.82) K/mm3 Eos # (Auto) (0.04-0.54) K/mm3 Baso # (Auto) (0.01-0.08) K/mm3 Neutrophils % (Manual) 81 H (40-60) % Band Neutrophils % 0 (0-10) % Lymphocytes % (Manual) 13 L (20-40) % Atypical Lymphs % 0 % Monocytes % (Manual) 6 (2-10) % Eosinophils % (Manual) 0 L (0.8-7.0) % Basophils % (Manual) 0 L (0.2-1.2) Manual Slide Review Platelet Estimate Adequate RBC Morph Comment Normal PT (9.7-11.7) SECONDS INR APTT (22-31) SECONDS D-Dimer, Quantitative (0.19-0.50) mg/L Puncture Site ABG pH (7.35-7.45) ABG pCO2 (35.0-45.0) mmHg ABG pO2 (80.0-100.0) mmHg ABG HCO3 (22.0-26.0) meq/L ABG O2 Saturation (96.0-97.0) % ABG Base Excess (-2-2.0) Randy Test A-a Gradient mmHg O2 Delivery Device Oxygen Flow Rate Sodium (136-145) mEq/L Potassium (3.5-5.1) mEq/L Chloride (98-107) mEq/L Carbon Dioxide (21-32) mEq/L Anion Gap (5-15) BUN (7-18) mg/dL Creatinine (0.7-1.3) mg/dL Est Cr Clr Drug Dosing mL/min Estimated GFR (MDRD) (>60) mL/min BUN/Creatinine Ratio (14-18) Glucose (83-115) mg/dL POC Glucose 185 H (83-110) mg/dL Hemoglobin A1c (4.50-6.20) % Lactic Acid (0.4-2.0) mmol/L Calcium (8.5-10.1) mg/dL Phosphorus (2.6-4.7) mg/dL Magnesium (1.8-2.4) mg/dl Ferritin (26-388) ng/ml Total Bilirubin (0.2-1.0) mg/dL AST (15-37) U/L ALT (16-63) U/L Alkaline Phosphatase (46-116) U/L Lactate Dehydrogenase (85-227) U/L Troponin I (0.00-0.056) ng/mL C-Reactive Protein 9.5 H* (<1.0) mg/dL NT-Pro-B Natriuret Pep (0-125) pg/mL Total Protein (6.4-8.2) g/dl Albumin (3.4-5.0) g/dl Globulin gm/dL Albumin/Globulin Ratio (1-2) Mycoplasma pneumon IgM (NEGATIVE) 11/20/19 11/20/19 11/20/19 Range/Units 12:10 12:10 12:10 WBC (4.23-9.07) K/mm3 RBC (4.63-6.08) M/mm3 Hgb (13.7-17.5) gm/dl Hct (40.1-51.0) % MCV (79.0-92.2) fl MCH (25.7-32.2) pg MCHC (32.2-35.5) g/dl RDW Std Deviation (35.1-43.9) fL Plt Count (163-337) K/mm3 MPV (9.4-12.3) fl Neut % (Auto) (34.0-67.9) % Lymph % (Auto) (21.8-53.1) % [place] % (Auto) (5.3-12.2) % Eos % (Auto) (0.8-7.0) Baso % (Auto) (0.1-1.2) % Neut # (Auto) (1.78-5.38) K/mm3 Lymph # (Auto) (1.32-3.57) K/mm3 [place] # (Auto) (0.30-0.82) K/mm3 Eos # (Auto) (0.04-0.54) K/mm3 Baso # (Auto) (0.01-0.08) K/mm3 Neutrophils % (Manual) (40-60) % Band Neutrophils % (0-10) % Lymphocytes % (Manual) (20-40) % Atypical Lymphs % % Monocytes % (Manual) (2-10) % Eosinophils % (Manual) (0.8-7.0) % Basophils % (Manual) (0.2-1.2) Manual Slide Review Platelet Estimate RBC Morph Comment PT 11.1 (9.7-11.7) SECONDS INR 1.04 APTT 28 (22-31) SECONDS D-Dimer, Quantitative 1.77 H (0.19-0.50) mg/L Puncture Site ABG pH (7.35-7.45) ABG pCO2 (35.0-45.0) mmHg ABG pO2 (80.0-100.0) mmHg ABG HCO3 (22.0-26.0) meq/L ABG O2 Saturation (96.0-97.0) % ABG Base Excess (-2-2.0) Randy Test A-a Gradient mmHg O2 Delivery Device Oxygen Flow Rate Sodium 133 L (136-145) mEq/L Potassium 2.9 L (3.5-5.1) mEq/L Chloride 92 L (98-107) mEq/L Carbon Dioxide 32 (21-32) mEq/L Anion Gap 11.9 (5-15) BUN 21 H (7-18) mg/dL Creatinine 1.4 H (0.7-1.3) mg/dL Est Cr Clr Drug Dosing 56.27 mL/min Estimated GFR (MDRD) 50 (>60) mL/min BUN/Creatinine Ratio 15.0 (14-18) Glucose 193 H (83-115) mg/dL POC Glucose (83-110) mg/dL Hemoglobin A1c (4.50-6.20) % Lactic Acid (0.4-2.0) mmol/L Calcium 8.7 (8.5-10.1) mg/dL Phosphorus (2.6-4.7) mg/dL Magnesium 1.8 (1.8-2.4) mg/dl Ferritin (26-388) ng/ml Total Bilirubin 1.6 H (0.2-1.0) mg/dL AST 95 H (15-37) U/L ALT 90 H (16-63) U/L Alkaline Phosphatase 49 (46-116) U/L Lactate Dehydrogenase 410 H (85-227) U/L Troponin I 0.146 H* (0.00-0.056) ng/mL C-Reactive Protein (<1.0) mg/dL NT-Pro-B Natriuret Pep 559 H (0-125) pg/mL Total Protein 7.0 (6.4-8.2) g/dl Albumin 2.9 L (3.4-5.0) g/dl Globulin 4.1 gm/dL Albumin/Globulin Ratio 0.7 L (1-2) Mycoplasma pneumon IgM (NEGATIVE) 11/20/19 11/20/19 11/20/19 Range/Units 12:10 12:10 12:10 WBC (4.23-9.07) K/mm3 RBC (4.63-6.08) M/mm3 Hgb (13.7-17.5) gm/dl Hct (40.1-51.0) % MCV (79.0-92.2) fl MCH (25.7-32.2) pg MCHC (32.2-35.5) g/dl RDW Std Deviation (35.1-43.9) fL Plt Count (163-337) K/mm3 MPV (9.4-12.3) fl Neut % (Auto) (34.0-67.9) % Lymph % (Auto) (21.8-53.1) % [place] % (Auto) (5.3-12.2) % Eos % (Auto) (0.8-7.0) Baso % (Auto) (0.1-1.2) % Neut # (Auto) (1.78-5.38) K/mm3 Lymph # (Auto) (1.32-3.57) K/mm3 [place] # (Auto) (0.30-0.82) K/mm3 Eos # (Auto) (0.04-0.54) K/mm3 Baso # (Auto) (0.01-0.08) K/mm3 Neutrophils % (Manual) (40-60) % Band Neutrophils % (0-10) % Lymphocytes % (Manual) (20-40) % Atypical Lymphs % % Monocytes % (Manual) (2-10) % Eosinophils % (Manual) (0.8-7.0) % Basophils % (Manual) (0.2-1.2) Manual Slide Review Platelet Estimate RBC Morph Comment PT (9.7-11.7) SECONDS INR APTT (22-31) SECONDS D-Dimer, Quantitative (0.19-0.50) mg/L Puncture Site ABG pH (7.35-7.45) ABG pCO2 (35.0-45.0) mmHg ABG pO2 (80.0-100.0) mmHg ABG HCO3 (22.0-26.0) meq/L ABG O2 Saturation (96.0-97.0) % ABG Base Excess (-2-2.0) Randy Test A-a Gradient mmHg O2 Delivery Device Oxygen Flow Rate Sodium (136-145) mEq/L Potassium (3.5-5.1) mEq/L Chloride (98-107) mEq/L Carbon Dioxide (21-32) mEq/L Anion Gap (5-15) BUN (7-18) mg/dL Creatinine (0.7-1.3) mg/dL Est Cr Clr Drug Dosing mL/min Estimated GFR (MDRD) (>60) mL/min BUN/Creatinine Ratio (14-18) Glucose (83-115) mg/dL POC Glucose (83-110) mg/dL Hemoglobin A1c (4.50-6.20) % Lactic Acid 1.6 (0.4-2.0) mmol/L Calcium (8.5-10.1) mg/dL Phosphorus (2.6-4.7) mg/dL Magnesium (1.8-2.4) mg/dl Ferritin 2210 H (26-388) ng/ml Total Bilirubin (0.2-1.0) mg/dL AST (15-37) U/L ALT (16-63) U/L Alkaline Phosphatase (46-116) U/L Lactate Dehydrogenase (85-227) U/L Troponin I (0.00-0.056) ng/mL C-Reactive Protein (<1.0) mg/dL NT-Pro-B Natriuret Pep (0-125) pg/mL Total Protein (6.4-8.2) g/dl Albumin (3.4-5.0) g/dl Globulin gm/dL Albumin/Globulin Ratio (1-2) Mycoplasma pneumon IgM Negative (NEGATIVE) 11/20/19 11/20/19 11/20/19 Range/Units 12:20 20:04 21:10 WBC (4.23-9.07) K/mm3 RBC (4.63-6.08) M/mm3 Hgb (13.7-17.5) gm/dl Hct (40.1-51.0) % MCV (79.0-92.2) fl MCH (25.7-32.2) pg MCHC (32.2-35.5) g/dl RDW Std Deviation (35.1-43.9) fL Plt Count (163-337) K/mm3 MPV (9.4-12.3) fl Neut % (Auto) (34.0-67.9) % Lymph % (Auto) (21.8-53.1) % [place] % (Auto) (5.3-12.2) % Eos % (Auto) (0.8-7.0) Baso % (Auto) (0.1-1.2) % Neut # (Auto) (1.78-5.38) K/mm3 Lymph # (Auto) (1.32-3.57) K/mm3 [place] # (Auto) (0.30-0.82) K/mm3 Eos # (Auto) (0.04-0.54) K/mm3 Baso # (Auto) (0.01-0.08) K/mm3 Neutrophils % (Manual) (40-60) % Band Neutrophils % (0-10) % Lymphocytes % (Manual) (20-40) % Atypical Lymphs % % Monocytes % (Manual) (2-10) % Eosinophils % (Manual) (0.8-7.0) % Basophils % (Manual) (0.2-1.2) Manual Slide Review Platelet Estimate RBC Morph Comment PT (9.7-11.7) SECONDS INR APTT 28 (22-31) SECONDS D-Dimer, Quantitative (0.19-0.50) mg/L Puncture Site Lt radial ABG pH 7.52 H (7.35-7.45) ABG pCO2 35.2 (35.0-45.0) mmHg ABG pO2 60.0 L (80.0-100.0) mmHg ABG HCO3 28.6 H (22.0-26.0) meq/L ABG O2 Saturation 91.8 L (96.0-97.0) % ABG Base Excess 6.0 H (-2-2.0) Randy Test Positive A-a Gradient 124 mmHg O2 Delivery Device Nasal cannula Oxygen Flow Rate 3.0 Sodium (136-145) mEq/L Potassium (3.5-5.1) mEq/L Chloride (98-107) mEq/L Carbon Dioxide (21-32) mEq/L Anion Gap (5-15) BUN (7-18) mg/dL Creatinine (0.7-1.3) mg/dL Est Cr Clr Drug Dosing mL/min Estimated GFR (MDRD) (>60) mL/min BUN/Creatinine Ratio (14-18) Glucose (83-115) mg/dL POC Glucose (83-110) mg/dL Hemoglobin A1c (4.50-6.20) % Lactic Acid (0.4-2.0) mmol/L Calcium (8.5-10.1) mg/dL Phosphorus (2.6-4.7) mg/dL Magnesium (1.8-2.4) mg/dl Ferritin (26-388) ng/ml Total Bilirubin (0.2-1.0) mg/dL AST (15-37) U/L ALT (16-63) U/L Alkaline Phosphatase (46-116) U/L Lactate Dehydrogenase (85-227) U/L Troponin I 0.145 H* (0.00-0.056) ng/mL C-Reactive Protein (<1.0) mg/dL NT-Pro-B Natriuret Pep (0-125) pg/mL Total Protein (6.4-8.2) g/dl Albumin (3.4-5.0) g/dl Globulin gm/dL Albumin/Globulin Ratio (1-2) Mycoplasma pneumon IgM (NEGATIVE) 11/20/19 11/21/19 11/21/19 Range/Units 23:05 03:06 03:06 WBC 5.09 (4.23-9.07) K/mm3 RBC 4.47 L (4.63-6.08) M/mm3 Hgb 13.7 (13.7-17.5) gm/dl Hct 42.2 (40.1-51.0) % MCV 94.4 H (79.0-92.2) fl MCH 30.6 (25.7-32.2) pg MCHC 32.5 (32.2-35.5) g/dl RDW Std Deviation 44.1 H (35.1-43.9) fL Plt Count 171 (163-337) K/mm3 MPV 10.9 (9.4-12.3) fl Neut % (Auto) 88.4 H (34.0-67.9) % Lymph % (Auto) 8.4 L (21.8-53.1) % [place] % (Auto) 2.6 L (5.3-12.2) % Eos % (Auto) 0 L (0.8-7.0) Baso % (Auto) 0.2 (0.1-1.2) % Neut # (Auto) 4.50 (1.78-5.38) K/mm3 Lymph # (Auto) 0.43 L (1.32-3.57) K/mm3 [place] # (Auto) 0.13 L (0.30-0.82) K/mm3 Eos # (Auto) 0.00 L (0.04-0.54) K/mm3 Baso # (Auto) 0.01 (0.01-0.08) K/mm3 Neutrophils % (Manual) (40-60) % Band Neutrophils % (0-10) % Lymphocytes % (Manual) (20-40) % Atypical Lymphs % % Monocytes % (Manual) (2-10) % Eosinophils % (Manual) (0.8-7.0) % Basophils % (Manual) (0.2-1.2) Manual Slide Review Abnormal smear Platelet Estimate RBC Morph Comment PT (9.7-11.7) SECONDS INR APTT (22-31) SECONDS D-Dimer, Quantitative 1.34 H (0.19-0.50) mg/L Puncture Site ABG pH (7.35-7.45) ABG pCO2 (35.0-45.0) mmHg ABG pO2 (80.0-100.0) mmHg ABG HCO3 (22.0-26.0) meq/L ABG O2 Saturation (96.0-97.0) % ABG Base Excess (-2-2.0) Randy Test A-a Gradient mmHg O2 Delivery Device Oxygen Flow Rate Sodium (136-145) mEq/L Potassium (3.5-5.1) mEq/L Chloride (98-107) mEq/L Carbon Dioxide (21-32) mEq/L Anion Gap (5-15) BUN (7-18) mg/dL Creatinine (0.7-1.3) mg/dL Est Cr Clr Drug Dosing mL/min Estimated GFR (MDRD) (>60) mL/min BUN/Creatinine Ratio (14-18) Glucose (83-115) mg/dL POC Glucose 181 H (83-110) mg/dL Hemoglobin A1c (4.50-6.20) % Lactic Acid (0.4-2.0) mmol/L Calcium (8.5-10.1) mg/dL Phosphorus (2.6-4.7) mg/dL Magnesium (1.8-2.4) mg/dl Ferritin (26-388) ng/ml Total Bilirubin (0.2-1.0) mg/dL AST (15-37) U/L ALT (16-63) U/L Alkaline Phosphatase (46-116) U/L Lactate Dehydrogenase (85-227) U/L Troponin I (0.00-0.056) ng/mL C-Reactive Protein (<1.0) mg/dL NT-Pro-B Natriuret Pep (0-125) pg/mL Total Protein (6.4-8.2) g/dl Albumin (3.4-5.0) g/dl Globulin gm/dL Albumin/Globulin Ratio (1-2) Mycoplasma pneumon IgM (NEGATIVE) 11/21/19 11/21/19 11/21/19 Range/Units 03:06 03:06 03:06 WBC (4.23-9.07) K/mm3 RBC (4.63-6.08) M/mm3 Hgb (13.7-17.5) gm/dl Hct (40.1-51.0) % MCV (79.0-92.2) fl MCH (25.7-32.2) pg MCHC (32.2-35.5) g/dl RDW Std Deviation (35.1-43.9) fL Plt Count (163-337) K/mm3 MPV (9.4-12.3) fl Neut % (Auto) (34.0-67.9) % Lymph % (Auto) (21.8-53.1) % [place] % (Auto) (5.3-12.2) % Eos % (Auto) (0.8-7.0) Baso % (Auto) (0.1-1.2) % Neut # (Auto) (1.78-5.38) K/mm3 Lymph # (Auto) (1.32-3.57) K/mm3 [place] # (Auto) (0.30-0.82) K/mm3 Eos # (Auto) (0.04-0.54) K/mm3 Baso # (Auto) (0.01-0.08) K/mm3 Neutrophils % (Manual) (40-60) % Band Neutrophils % (0-10) % Lymphocytes % (Manual) (20-40) % Atypical Lymphs % % Monocytes % (Manual) (2-10) % Eosinophils % (Manual) (0.8-7.0) % Basophils % (Manual) (0.2-1.2) Manual Slide Review Platelet Estimate RBC Morph Comment PT (9.7-11.7) SECONDS INR APTT 46 H (22-31) SECONDS D-Dimer, Quantitative (0.19-0.50) mg/L Puncture Site ABG pH (7.35-7.45) ABG pCO2 (35.0-45.0) mmHg ABG pO2 (80.0-100.0) mmHg ABG HCO3 (22.0-26.0) meq/L ABG O2 Saturation (96.0-97.0) % ABG Base Excess (-2-2.0) Randy Test A-a Gradient mmHg O2 Delivery Device Oxygen Flow Rate Sodium 135 L (136-145) mEq/L Potassium 3.4 L (3.5-5.1) mEq/L Chloride 96 L (98-107) mEq/L Carbon Dioxide 30 (21-32) mEq/L Anion Gap 12.4 (5-15) BUN 20 H (7-18) mg/dL Creatinine 1.2 (0.7-1.3) mg/dL Est Cr Clr Drug Dosing 65.65 mL/min Estimated GFR (MDRD) 60 (>60) mL/min BUN/Creatinine Ratio 16.7 (14-18) Glucose 266 H (83-115) mg/dL POC Glucose (83-110) mg/dL Hemoglobin A1c 8.10 H (4.50-6.20) % Lactic Acid (0.4-2.0) mmol/L Calcium 8.1 L (8.5-10.1) mg/dL Phosphorus 3.0 (2.6-4.7) mg/dL Magnesium 2.0 (1.8-2.4) mg/dl Ferritin (26-388) ng/ml Total Bilirubin 0.9 (0.2-1.0) mg/dL AST 106 H (15-37) U/L ALT 99 H (16-63) U/L Alkaline Phosphatase 46 (46-116) U/L Lactate Dehydrogenase (85-227) U/L Troponin I 0.147 H* (0.00-0.056) ng/mL C-Reactive Protein 9.8 H* (<1.0) mg/dL NT-Pro-B Natriuret Pep (0-125) pg/mL Total Protein 6.3 L (6.4-8.2) g/dl Albumin 2.5 L (3.4-5.0) g/dl Globulin 3.8 gm/dL Albumin/Globulin Ratio 0.7 L (1-2) Mycoplasma pneumon IgM (NEGATIVE) 11/21/19 Range/Units 06:36 WBC (4.23-9.07) K/mm3 RBC (4.63-6.08) M/mm3 Hgb (13.7-17.5) gm/dl Hct (40.1-51.0) % MCV (79.0-92.2) fl MCH (25.7-32.2) pg MCHC (32.2-35.5) g/dl RDW Std Deviation (35.1-43.9) fL Plt Count (163-337) K/mm3 MPV (9.4-12.3) fl Neut % (Auto) (34.0-67.9) % Lymph % (Auto) (21.8-53.1) % [place] % (Auto) (5.3-12.2) % Eos % (Auto) (0.8-7.0) Baso % (Auto) (0.1-1.2) % Neut # (Auto) (1.78-5.38) K/mm3 Lymph # (Auto) (1.32-3.57) K/mm3 [place] # (Auto) (0.30-0.82) K/mm3 Eos # (Auto) (0.04-0.54) K/mm3 Baso # (Auto) (0.01-0.08) K/mm3 Neutrophils % (Manual) (40-60) % Band Neutrophils % (0-10) % Lymphocytes % (Manual) (20-40) % Atypical Lymphs % % Monocytes % (Manual) (2-10) % Eosinophils % (Manual) (0.8-7.0) % Basophils % (Manual) (0.2-1.2) Manual Slide Review Platelet Estimate RBC Morph Comment PT (9.7-11.7) SECONDS INR APTT (22-31) SECONDS D-Dimer, Quantitative (0.19-0.50) mg/L Puncture Site ABG pH (7.35-7.45) ABG pCO2 (35.0-45.0) mmHg ABG pO2 (80.0-100.0) mmHg ABG HCO3 (22.0-26.0) meq/L ABG O2 Saturation (96.0-97.0) % ABG Base Excess (-2-2.0) Randy Test A-a Gradient mmHg O2 Delivery Device Oxygen Flow Rate Sodium (136-145) mEq/L Potassium (3.5-5.1) mEq/L Chloride (98-107) mEq/L Carbon Dioxide (21-32) mEq/L Anion Gap (5-15) BUN (7-18) mg/dL Creatinine (0.7-1.3) mg/dL Est Cr Clr Drug Dosing mL/min Estimated GFR (MDRD) (>60) mL/min BUN/Creatinine Ratio (14-18) Glucose (83-115) mg/dL POC Glucose 219 H (83-110) mg/dL Hemoglobin A1c (4.50-6.20) % Lactic Acid (0.4-2.0) mmol/L Calcium (8.5-10.1) mg/dL Phosphorus (2.6-4.7) mg/dL Magnesium (1.8-2.4) mg/dl Ferritin (26-388) ng/ml Total Bilirubin (0.2-1.0) mg/dL AST (15-37) U/L ALT (16-63) U/L Alkaline Phosphatase (46-116) U/L Lactate Dehydrogenase (85-227) U/L Troponin I (0.00-0.056) ng/mL C-Reactive Protein (<1.0) mg/dL NT-Pro-B Natriuret Pep (0-125) pg/mL Total Protein (6.4-8.2) g/dl Albumin (3.4-5.0) g/dl Globulin gm/dL Albumin/Globulin Ratio (1-2) Mycoplasma pneumon IgM (NEGATIVE) Med Orders - Current: Current Medications Acetaminophen (Tylenol) 650 mg PO Q4H PRN PRN Reason: Pain (Mild 1-3)/fever Last Admin: 11/20/19 21:03 Dose: 650 mg Documented by: Alogliptin Benzoate (Alogliptin) 25 mg PO DAILY [facility] Last Admin: 11/21/19 08:10 Dose: 25 mg Documented by: Amlodipine Besylate (Norvasc) 5 mg PO DAILY [facility] Last Admin: 11/21/19 08:09 Dose: 5 mg Documented by: Dexamethasone (Dexamethasone) 6 mg PO Q24H [facility] Stop: 11/29/19 20:01 Last Admin: 11/20/19 21:04 Dose: 6 mg Documented by: Dextrose/Water (Dextrose 50% In Water) 50 ml IVPUSH ASDIRECTED PRN PRN Reason: Hypoglycemia Remdesivir 100 mg/ Sodium (Chloride) 100 mls @ 100 mls/hr IV Q24H [facility] Stop: 11/24/19 20:59 Ceftriaxone Sodium 2 gm/ (Sodium Chloride) 100 mls @ 200 mls/hr IV Q24H [facility] Stop: 11/24/19 20:29 Last Admin: 11/20/19 21:09 Dose: 200 mls/hr Documented by: Azithromycin 500 mg/ Sodium (Chloride) 250 mls @ 250 mls/hr IV Q24H [facility] Stop: 11/22/19 21:59 Last Admin: 11/20/19 23:47 Dose: 250 mls/hr Documented by: Heparin Sodium/Dextrose (Heparin 25,000 Units In D5w 500 Ml) 25,000 units in 500 mls @ 20 mls/hr IV TITRATE [facility]; Protocol Last Titration: 11/21/19 04:33 Dose: 1,224 units/hr, 24.48 mls/hr Documented by: Insulin Human Lispro (Humalog) 0 unit SUBCUT QIDACANDBED [facility]; Protocol Last Admin: 11/21/19 09:25 Dose: 2 units Documented by: Metoprolol Tartrate (Lopressor) 50 mg PO DAILY [facility] Last Admin: 11/21/19 08:10 Dose: 50 mg Documented by: Rosuvastatin Calcium (Crestor) 5 mg PO DAILY [facility] Last Admin: 11/21/19 08:09 Dose: 5 mg Documented by: Tamsulosin HCl (Flomax) 0.4 mg PO DAILY [facility] Last Admin: 11/21/19 08:10 Dose: 0.4 mg Documented by: Discontinued Medications Enoxaparin Sodium (Lovenox) 40 mg SUBCUT BEDTIME [facility] Heparin Sodium (Porcine) (Heparin Sodium) 4,000 units IVPUSH ONETIME ONE Stop: 11/20/19 20:46 Last Admin: 11/20/19 22:45 Dose: 4,000 units Documented by: Heparin Sodium (Porcine) (Heparin Sodium) 1,000 units IV ONETIME ONE Stop: 11/21/19 04:36 Last Admin: 11/21/19 04:54 Dose: 1,000 units Documented by: Sodium Chloride (Normal Saline) 1,000 mls @ 150 mls/hr IV ONETIME ONE Stop: 11/20/19 18:30 Last Admin: 11/20/19 12:12 Dose: 150 mls/hr Documented by: Sodium Chloride (Normal Saline) 100 mls @ 60 mls/hr IV ASDIRECTED [facility] Last Admin: 11/20/19 15:05 Dose: 60 mls/hr Documented by: Remdesivir 200 mg/ Sodium (Chloride) 250 mls @ 250 mls/hr IV ONETIME ONE Stop: 11/20/19 19:42 Last Admin: 11/20/19 22:43 Dose: 250 mls/hr Documented by: Iopamidol (Isovue-370 (76%)) 100 ml IVPUSH ONETIME ONE Stop: 11/20/19 14:17 Last Admin: 11/20/19 15:05 Dose: 100 ml Documented by: Potassium Chloride (Klor-Con M20) 40 meq PO ONETIME ONE Stop: 11/20/19 15:31 Last Admin: 11/20/19 15:55 Dose: 40 meq Documented by: Sodium Chloride (Saline Flush) 10 ml FLUSH ONETIME ONE Stop: 11/20/19 14:17 Last Admin: 11/20/19 15:05 Dose: 10 ml Documented by: - Exam Quality Assessment: Supplemental Oxygen General: Alert, Oriented HEENT: Pupils Equal, Mucous Membr. Moist/[place]ck: Supple Lungs: Decreased Breath Sounds. No: Normal Respiratory Effort (Increased respiratory rate) Cardiovascular: Regular Rate, Regular Rhythm GI/Abdominal Exam: Normal Bowel Sounds, Soft, No Distention Skin: Warm, Dry, Intact Psy/Mental Status: Alert, Normal Affect, Normal Mood Sepsis Event Note - Evaluation Sepsis Screening Result: No Definite Risk - Focused Exam Vital Signs: Vital Signs Temp Pulse Resp BP Pulse Ox Pulse Ox 11/21/19 08:10 78 145/87 H 11/21/19 08:09 145/87 H 11/21/19 08:06 98.8 F 78 24 H 145/87 H 93 L 11/21/19 05:26 93 L 11/21/19 04:38 98.4 F 74 20 130/73 94 L 11/21/19 02:33 93 L 11/21/19 01:24 98.4 F 11/21/19 00:01 146/79 H 11/20/19 23:00 84 21 H 119/65 92 L 11/20/19 22:58 98.8 F 83 93 L - Problem List & Annotations (1) Myocarditis due to COVID-19 virus SNOMED Code(s): 8471766613086202 Code(s): U07.1 - COVID-19; I40.0 - INFECTIVE MYOCARDITIS Status: Acute Current Visit: Yes (2) COVID-19 SNOMED Code(s): 307095618 Code(s): U07.1 - COVID-19 Status: Acute Current Visit: Yes (3) Diabetes type 2, uncontrolled SNOMED Code(s): 542950244, 136490372 Code(s): E11.65 - TYPE 2 DIABETES MELLITUS WITH HYPERGLYCEMIA Status: Acute Current Visit: Yes (4) Pneumonia due to 2019 novel coronavirus SNOMED Code(s): 397570442382071131 Code(s): U07.1 - COVID-19; J12.89 - OTHER VIRAL PNEUMONIA Status: Acute Current Visit: Yes (5) CAD (coronary artery disease) SNOMED Code(s): 07426232 Code(s): I25.10 - ATHSCL HEART DISEASE OF [place] CORONARY ARTERY W/O ANG PCTRS Status: Acute Current Visit: Yes (6) HTN (hypertension) SNOMED Code(s): 80848670 Code(s): I10 - ESSENTIAL (PRIMARY) HYPERTENSION Status: Acute Current Visit: Yes - Problem List Review Problem List Initiated/Reviewed/Updated: Yes - My Orders Last 24 Hours: My Active Orders 11/20/19 Dinner Consistent Carbohydrate Diet [DIET] 11/20/19 19:40 Blood Glucose Check, Bedside [RC] QIDACANDBED Dextrose 50% in Water 50 ml IVPUSH ASDIRECTED PRN 11/20/19 19:46 Up With Assistance [RC] BID Acetaminophen [TylenoL] 650 mg PO Q4H PRN Resuscitation Status Routine 11/20/19 19:47 VTE/DVT Education [RC] DAILY Vital Signs [RC] Q4HR 11/20/19 20:00 cefTRIAXone [Rocephin] 2 gm Sodium Chloride 0.9% [Normal Saline] 100 ml IV Q24H dexAMETHasone 6 mg PO Q24H 11/20/19 20:45 Heparin Sodium/D5W [Heparin 25,000 Units in D5W 500 ML] 25,000 units in 500 ml IV TITRATE 11/20/19 21:00 Azithromycin [Zithromax] 500 mg Sodium Chloride 0.9% [Normal Saline] 250 ml IV Q24H 11/20/19 21:11 Intake and Output Strict [RC] Q2HR 11/20/19 22:00 Insulin Lispro [HumaLOG] See Protocol SUBCUT QIDACANDBED 11/21/19 00:00 Patient Status [ADT] Routine 11/21/19 01:16 Pulse Oximetry Continuous Monitoring [OM.PC] Routine 11/21/19 09:00 Alogliptin Benzoate [Alogliptin] 25 mg PO DAILY Metoprolol Tartrate [Lopressor] 50 mg PO DAILY Rosuvastatin [Crestor] 5 mg PO DAILY Tamsulosin [Flomax] 0.4 mg PO DAILY amLODIPine [Norvasc] 5 mg PO DAILY 11/21/19 09:41 Verify Patient Consent Obtain [RC] ASDIRECTED ABO/RH TYPE [BBK] Routine FRESH FROZEN PLASMA [BBK] Routine Transfuse Fresh Frozen Plasma [COMM] Routine 11/21/19 10:30 aPTT [PTT,PARTIAL THROMBOPLSTIN TIME] [COAG] Timed 11/21/19 20:00 Remdesivir (Eua) [Remdesivir (EUA)] 100 mg Sodium Chloride 0.9% [Normal Saline] 100 ml IV Q24H 11/24/19 07:00 CBC W/O DIFF,HEMOGRAM [HEME] MOTH@0700 11/28/19 07:00 CBC W/O DIFF,HEMOGRAM [HEME] MOTH@0700 12/01/19 07:00 CBC W/O DIFF,HEMOGRAM [HEME] MOTH@0700 12/05/19 07:00 CBC W/O DIFF,HEMOGRAM [HEME] MOTH@0700 12/08/19 07:00 CBC W/O DIFF,HEMOGRAM [HEME] MOTH@0700 12/12/19 07:00 CBC W/O DIFF,HEMOGRAM [HEME] MOTH@0700 - Plan Plan:: 69-year-old male with COVID-19 pneumonia and possible myocarditis. * Oxygen saturations decreased on admission approximately 81% on room air. * Troponin elevated at 0.146. * Cardiology recommended trending troponin, echocardiogram, and heparin. * CT of the chest showed multifocal peripheral airspace opacity concerning for multi lobar pneumonia. Cardiomegaly. Prominent hilar lymph nodes present. * WBC 5.1, CRP 9.5, d-dimer 1.77, LDH 410, ferritin 2210 Acute renal injury versus chronic renal insufficiency Metabolic alkalosis likely secondary to volume contraction. Hyponatremia/hypokalemia * Given 40 mEq of potassium in the emergency department * Started on normal saline. * Need to be especially careful with fluid status in COVID patients. * Would benefit from old records Type 2 diabetes * On metformin, glipizide and Ozempic. * Unknown hemoglobin A1c. * Initial glucose 193 nonfasting Coronary artery disease, hypertension * Moderate grade coronary atherosclerosis found on CT angiogram of the chest * EKG significant for right bundle branch block with left anterior fascicular block. Anterior Q waves and left ventricular hypertrophy. * Home meds include metoprolol, enalapril, rosuvastatin, hydrochlorothiazide, and amlodipine COVID-19 with pneumonia and myocarditis Reduced ejection fraction heart failure Cardiomegaly Blood cultures positive for gram-positive cocci * Echocardiogram, limited1. Left ventricular ejection fraction 30 to 35%. 2. Global and severely decreased left ventricular systolic function 3. Impaired relaxation pattern of LV diastolic filling. Grade 1 4. Moderate proximal septal hypertrophy. 5. Mildly reduced right ventricular systolic function. 6. Mild aortic valve regurgitation. 7. Mild mitral valve regurgitation. 8. Mild tricuspid valve regurgitation. 9. No recent echocardiogram for comparison. * Respiratory support decreased overnight from 5 L to 4 L * No change in troponin with repeat troponin 0.147 * CBC 5.1, d-dimer 1.34, CRP 9.8 Acute renal injuryresolved, metabolic alkalosis/hyponatremia/hypokalemiaimproved * Estimated GFR greater than 60, creatinine 1.2, BUN 20 * Corrected sodium 142 * Potassium 3.4 * Bicarb 30 * Positive fluid balance and weight loss Type 2 diabetes * Blood sugars in the 200s * Hemoglobin A1c 8.1 Coronary artery disease, hypertension * Significant systolic dysfunction, see above * Blood pressure: Systolic blood pressure 130-146, diastolic blood pressure 69- 87 * On metoprolol tartrate 25 mg twice daily, Norvasc 5 mg daily, losartan 50 mg daily Plan * Admit to floor * Continue heparin drip until tomorrow * Troponin in the morning * FiO2 to keep SPO2 greater than 88% * remdesivir and dexamethasone day 2 * Rocephin and azithromycin day 2 * Start vancomycin * Stop IV fluids * Closely follow renal function. Consider Recinos catheter. * Strict I's and O's and daily weights. * Lantus 5 units in the morning. * Continue metoprolol, losartan, rosuvastatin, and amlodipine. * Continue sliding scale insulin with glucose monitoring before each meal and bedtime. * Continue alogliptin. Was recent study showing that diabetics on sitagliptin had a 50% reduction in mortality. We do not have sitagliptin on formulary. * Hold enalapril and hydrochlorothiazide secondary to renal function and hypovolemia. * CBC, CMP, magnesium, phosphorus, d-dimer, CRP, and hemoglobin A1c in the morning. * Procalcitonin on blood work in the ER. VTE prophylaxis with heparin. CODE STATUS: Patient was not clear about CODE STATUS but it appears he is a full code. Disposition: Admit to floor. Length of stay will be at least 5 days for remdesivir treatment.
[2019-11-21] MEDS ORDERED: Sodium Chloride 0.9% 250 ML IV SCH (12:15)
[2019-11-21] MEDS ORDERED: Heparin Sodium 5,000 Units/ML Vial ONE (12:47)
[2019-11-21] MEDS: Acetaminophen 325 MG Tab PO PRN (15:41)
[2019-11-21] MEDS ORDERED: Vancomycin 2 GM in Sodium Chloride 0.9% 500 ML IV ONE (16:00)
[2019-11-21] MEDS: Heparin Sodium/D5W 25,000 UNITS/500 ML BAG IV SCH (19:32)
[2019-11-21] MEDS ORDERED: Potassium Chloride 20 MEQ Tab.ER PO ONE (20:55)
[2019-11-21] MEDS: cefTRIAXone 2 GM in Sodium Chloride 0.9% 100 ML IV SCH (21:24)
[2019-11-21] MEDS: Dexamethasone 4 MG Tab PO SCH (21:29)
[2019-11-21] MEDS: Metoprolol Tartrate 25 MG Tab PO SCH (21:30)
[2019-11-21] MEDS: REMDESIVIR (EUA) 100 MG in Sodium Chloride 0.9% 100 ML IV SCH (22:11)
[2019-11-21] MEDS: Azithromycin 500 MG in Sodium Chloride 0.9% 250 ML IV SCH (23:54)
[2019-11-22] MEDS: Acetaminophen 325 MG Tab PO PRN (00:16)
[2019-11-22] MEDS: Vancomycin 1.75 GM in Sodium Chloride 0.9% 500 ML IV SCH ×2 (06:54→17:13)
[2019-11-22] MEDS: Aspirin 81 MG Tab.EC PO SCH (08:43)
[2019-11-22] MEDS: Tamsulosin 0.4 MG Cap.ER PO SCH (08:43)
[2019-11-22] MEDS: Metoprolol Tartrate 25 MG Tab PO SCH ×2 (08:43→21:32)
[2019-11-22] MEDS: amLODIPine 5 MG Tab PO SCH (08:44)
[2019-11-22] MEDS: Losartan 100 MG Tab PO SCH (08:45)
[2019-11-22] MEDS: Rosuvastatin 10 MG Tab PO SCH (08:46)
[2019-11-22] MEDS: Insulin Glarg,Human.Rec.Analog 100 Unit/ML SUBCUT SCH (08:49)
[2019-11-22] MEDS: Insulin Lispro 100 Units/ML 3 ML Vial SUBCUT SCH ×4 (08:50→21:42)
--- NOTE | 2019-11-22 15:10 | PCM.PN ---
- General Info Date of Service: 11/22/19 Admission Dx/Problem (Free Text): Admission Diagnosis/Problem Admission Diagnosis/Problem Hypoxia Subjective Update: Patient states he is feeling better. He is having less shortness of breath and cough. Appetite is improving and taste is coming back. Functional Status: Reports: Pain Controlled - Review of Systems General: Reports: No Symptoms HEENT: Reports: No Symptoms Pulmonary: Reports: Cough Gastrointestinal: Reports: No Symptoms Musculoskeletal: Reports: No Symptoms - Patient Data Vitals - Most Recent: Last Vital Signs Temp 98.2 F 11/22/19 11:19 Pulse 72 11/22/19 11:19 Resp 22 H 11/22/19 11:19 BP 111/77 11/22/19 11:19 Pulse Ox 98 11/22/19 13:32 Weight - Most Recent: 112.808 kg I&O - Last 24 Hours: Intake & Output 11/22/19 11/22/19 11/22/19 06:59 14:59 22:59 Intake Total 871 480 Output Total 450 250 Balance 421 230 Lab Results Last 24 Hours: Laboratory Results - last 24 hr 11/21/19 11/21/19 11/21/19 Range/Units 03:06 17:16 17:52 APTT 63 H (22-31) SECONDS D-Dimer, Quantitative (0.19-0.50) mg/L Sodium (136-145) mEq/L Potassium (3.5-5.1) mEq/L Chloride (98-107) mEq/L Carbon Dioxide (21-32) mEq/L Anion Gap (5-15) BUN (7-18) mg/dL Creatinine (0.7-1.3) mg/dL Est Cr Clr Drug Dosing mL/min Estimated GFR (MDRD) (>60) mL/min BUN/Creatinine Ratio (14-18) Glucose (83-115) mg/dL POC Glucose 212 H (83-110) mg/dL Calcium (8.5-10.1) mg/dL Phosphorus (2.6-4.7) mg/dL Total Bilirubin (0.2-1.0) mg/dL AST (15-37) U/L ALT (16-63) U/L Alkaline Phosphatase (46-116) U/L Troponin I (0.00-0.056) ng/mL C-Reactive Protein (<1.0) mg/dL Total Protein (6.4-8.2) g/dl Albumin (3.4-5.0) g/dl Globulin gm/dL Albumin/Globulin Ratio (1-2) Blood Type A POSITIVE 11/21/19 11/21/19 11/22/19 Range/Units 21:21 22:50 07:07 APTT 67 H (22-31) SECONDS D-Dimer, Quantitative (0.19-0.50) mg/L Sodium (136-145) mEq/L Potassium (3.5-5.1) mEq/L Chloride (98-107) mEq/L Carbon Dioxide (21-32) mEq/L Anion Gap (5-15) BUN (7-18) mg/dL Creatinine (0.7-1.3) mg/dL Est Cr Clr Drug Dosing mL/min Estimated GFR (MDRD) (>60) mL/min BUN/Creatinine Ratio (14-18) Glucose (83-115) mg/dL POC Glucose 235 H 280 H (83-110) mg/dL Calcium (8.5-10.1) mg/dL Phosphorus (2.6-4.7) mg/dL Total Bilirubin (0.2-1.0) mg/dL AST (15-37) U/L ALT (16-63) U/L Alkaline Phosphatase (46-116) U/L Troponin I (0.00-0.056) ng/mL C-Reactive Protein (<1.0) mg/dL Total Protein (6.4-8.2) g/dl Albumin (3.4-5.0) g/dl Globulin gm/dL Albumin/Globulin Ratio (1-2) Blood Type 11/22/19 11/22/19 11/22/19 Range/Units 08:02 08:02 08:02 APTT (22-31) SECONDS D-Dimer, Quantitative 1.41 H (0.19-0.50) mg/L Sodium 134 L (136-145) mEq/L Potassium 3.7 (3.5-5.1) mEq/L Chloride 96 L (98-107) mEq/L Carbon Dioxide 27 (21-32) mEq/L Anion Gap 14.7 (5-15) BUN 19 H (7-18) mg/dL Creatinine 1.1 (0.7-1.3) mg/dL Est Cr Clr Drug Dosing 71.61 mL/min Estimated GFR (MDRD) > 60 (>60) mL/min BUN/Creatinine Ratio 17.3 (14-18) Glucose 305 H (83-115) mg/dL POC Glucose (83-110) mg/dL Calcium 8.7 (8.5-10.1) mg/dL Phosphorus 2.6 (2.6-4.7) mg/dL Total Bilirubin 0.9 (0.2-1.0) mg/dL AST 98 H (15-37) U/L ALT 109 H (16-63) U/L Alkaline Phosphatase 51 (46-116) U/L Troponin I 0.076 H* (0.00-0.056) ng/mL C-Reactive Protein 7.7 H* (<1.0) mg/dL Total Protein 7.0 (6.4-8.2) g/dl Albumin 2.8 L (3.4-5.0) g/dl Globulin 4.2 gm/dL Albumin/Globulin Ratio 0.7 L (1-2) Blood Type 11/22/19 Range/Units 11:25 APTT (22-31) SECONDS D-Dimer, Quantitative (0.19-0.50) mg/L Sodium (136-145) mEq/L Potassium (3.5-5.1) mEq/L Chloride (98-107) mEq/L Carbon Dioxide (21-32) mEq/L Anion Gap (5-15) BUN (7-18) mg/dL Creatinine (0.7-1.3) mg/dL Est Cr Clr Drug Dosing mL/min Estimated GFR (MDRD) (>60) mL/min BUN/Creatinine Ratio (14-18) Glucose (83-115) mg/dL POC Glucose 288 H (83-110) mg/dL Calcium (8.5-10.1) mg/dL Phosphorus (2.6-4.7) mg/dL Total Bilirubin (0.2-1.0) mg/dL AST (15-37) U/L ALT (16-63) U/L Alkaline Phosphatase (46-116) U/L Troponin I (0.00-0.056) ng/mL C-Reactive Protein (<1.0) mg/dL Total Protein (6.4-8.2) g/dl Albumin (3.4-5.0) g/dl Globulin gm/dL Albumin/Globulin Ratio (1-2) Blood Type Av Results Last 24 Hours: Microbiology 11/20/19 12:20 Aerobic Blood Culture - Preliminary Blood - Venous - Lab Draw NO GROWTH AFTER 2 DAYS Anaerobic Blood Culture - Preliminary NO GROWTH AFTER 2 DAYS 11/20/19 12:10 Aerobic Blood Culture - Preliminary Blood - Venous Gram Positive Cocci Anaerobic Blood Culture - Preliminary NO GROWTH AFTER 2 DAYS Med Orders - Current: Current Medications Acetaminophen (Tylenol) 650 mg PO Q4H PRN PRN Reason: Pain (Mild 1-3)/fever Last Admin: 11/22/19 00:16 Dose: 650 mg Documented by: Alogliptin Benzoate (Alogliptin) 25 mg PO DAILY [facility], [facility]1983 Last Admin: 11/22/19 08:42 Dose: 25 mg Documented by: Amlodipine Besylate (Norvasc) 5 mg PO DAILY [facility], [facility]1983 Last Admin: 11/22/19 08:44 Dose: 5 mg Documented by: Aspirin (Halfprin) 81 mg PO DAILY [facility], [facility]1983 Last Admin: 11/22/19 08:43 Dose: 81 mg Documented by: Dexamethasone (Dexamethasone) 6 mg PO Q24H [facility]1983 Stop: 11/29/19 20:01 Last Admin: 11/21/19 21:29 Dose: 6 mg Documented by: Dextrose/Water (Dextrose 50% In Water) 50 ml IVPUSH ASDIRECTED PRN PRN Reason: Hypoglycemia Remdesivir 100 mg/ Sodium (Chloride) 100 mls @ 100 mls/hr IV Q24H [facility]1983 Stop: 11/24/19 20:59 Last Admin: 11/21/19 22:11 Dose: 100 mls/hr Documented by: Ceftriaxone Sodium 2 gm/ (Sodium Chloride) 100 mls @ 200 mls/hr IV Q24H [facility]1983 Stop: 11/24/19 20:29 Last Admin: 11/21/19 21:24 Dose: 200 mls/hr Documented by: Azithromycin 500 mg/ Sodium (Chloride) 250 mls @ 250 mls/hr IV Q24H [facility]1983 Stop: 11/22/19 21:59 Last Admin: 11/21/19 23:54 Dose: 250 mls/hr Documented by: Vancomycin HCl 1.75 gm/ Sodium (Chloride) 500 mls @ 250 mls/hr IV Q12H [facility] Last Admin: 11/22/19 06:54 Dose: 250 mls/hr Documented by: Insulin Glargine (Lantus) 5 unit SUBCUT DAILY [facility], [facility] Last Admin: 11/22/19 08:49 Dose: 5 units Documented by: Insulin Human Lispro (Humalog) 0 unit SUBCUT QIDACANDBED [facility]LY [facility], [facility]–1983; Protocol Last Admin: 11/22/19 11:27 Dose: 3 units Documented by: Losartan Potassium (Cozaar) 50 mg PO DAILY [facility] Last Admin: 11/22/19 08:45 Dose: 50 mg Documented by: Metoprolol Tartrate (Lopressor) 25 mg PO Q12H [facility] Last Admin: 11/22/19 08:43 Dose: 25 mg Documented by: Rosuvastatin Calcium (Crestor) 5 mg PO DAILY [facility] Last Admin: 11/22/19 08:46 Dose: 5 mg Documented by: Tamsulosin HCl (Flomax) 0.4 mg PO DAILY [facility] Last Admin: 11/22/19 08:43 Dose: 0.4 mg Documented by: Vancomycin HCl (Pharmacy To Dose - Vancomycin) 1 dose .XX ASDIRECTED PRN PRN Reason: RX TO DOSE VANCO Discontinued Medications Enoxaparin Sodium (Lovenox) 40 mg SUBCUT BEDTIME [facility], [facility]1983 Heparin Sodium (Porcine) (Heparin Sodium) 4,000 units IVPUSH ONETIME ONE Stop: 11/20/19 20:46 Last Admin: 11/20/19 22:45 Dose: 4,000 units Documented by: Heparin Sodium (Porcine) (Heparin Sodium) 1,000 units IV ONETIME ONE Stop: 11/21/19 04:36 Last Admin: 11/21/19 04:54 Dose: 1,000 units Documented by: Heparin Sodium (Porcine) (Heparin Sodium) 1,000 units IV ONETIME ONE Stop: 11/21/19 13:01 Last Admin: 11/21/19 13:00 Dose: 1,000 units Documented by: Heparin Sodium (Porcine) (Heparin Sodium) Confirm Administered Dose 5,000 units .ROUTE .STK-MED ONE Stop: 11/21/19 12:48 Last Admin: 11/21/19 13:22 Dose: Not Given Documented by: Sodium Chloride (Normal Saline) 1,000 mls @ 150 mls/hr IV ONETIME ONE Stop: 11/20/19 18:30 Last Admin: 11/20/19 12:12 Dose: 150 mls/hr Documented by: Sodium Chloride (Normal Saline) 100 mls @ 60 mls/hr IV ASDIRECTED [facility], [facility]1983 Last Admin: 11/20/19 15:05 Dose: 60 mls/hr Documented by: Remdesivir 200 mg/ Sodium (Chloride) 250 mls @ 250 mls/hr IV ONETIME ONE Stop: 11/20/19 19:42 Last Admin: 11/20/19 22:43 Dose: 250 mls/hr Documented by: Heparin Sodium/Dextrose (Heparin 25,000 Units In D5w 500 Ml) 25,000 units in 500 mls @ 20 mls/hr IV TITRATE VIOLETA; Protocol Last Admin: 11/21/19 19:32 Dose: 1,445.4 units/hr, 28.908 mls/hr Documented by: Sodium Chloride (Normal Saline) 250 mls @ 125 mls/hr IV ASDIRECTED [facility], [facility]1983 Stop: 11/21/19 18:00 Last Admin: 11/21/19 13:23 Dose: 125 mls/hr Documented by: Vancomycin HCl 2 gm/ Sodium (Chloride) 500 mls @ 250 mls/hr IV ONETIME ONE Stop: 11/21/19 17:59 Last Admin: 11/21/19 17:45 Dose: 250 mls/hr Documented by: Iopamidol (Isovue-370 (76%)) 100 ml IVPUSH ONETIME ONE Stop: 11/20/19 14:17 Last Admin: 11/20/19 15:05 Dose: 100 ml Documented by: Metoprolol Tartrate (Lopressor) 50 mg PO DAILY [facility] Last Admin: 11/21/19 08:10 Dose: 50 mg Documented by: Potassium Chloride (Klor-Con M20) 40 meq PO ONETIME ONE Stop: 11/20/19 15:31 Last Admin: 11/20/19 15:55 Dose: 40 meq Documented by: Potassium Chloride (Klor-Con M20) 40 meq PO ONETIME ONE Stop: 11/21/19 20:56 Last Admin: 11/21/19 21:33 Dose: 40 meq Documented by: Sodium Chloride (Saline Flush) 10 ml FLUSH ONETIME ONE Stop: 11/20/19 14:17 Last Admin: 11/20/19 15:05 Dose: 10 ml Documented by: - Exam Quality Assessment: Supplemental Oxygen General: Alert HEENT: Pupils Equal, Mucous Membr. Moist/[place] Neck: Supple Lungs: Normal Respiratory Effort, Decreased Breath Sounds Cardiovascular: Regular Rate, Regular Rhythm GI/Abdominal Exam: Normal Bowel Sounds, Soft, Non-Tender, No Distention Extremities: Normal Inspection, No Pedal Edema, Normal Capillary Refill Skin: Warm, Dry, Intact Psy/Mental Status: Alert, Normal Affect, Normal Mood Sepsis Event Note - Evaluation Sepsis Screening Result: No Definite Risk - Focused Exam Vital Signs: Vital Signs Temp Pulse Resp BP Pulse Ox Pulse Ox 11/22/19 13:32 98 11/22/19 11:19 98.2 F 72 22 H 111/77 98 11/22/19 09:45 95 11/22/19 09:35 96 11/22/19 08:45 130/80 11/22/19 08:44 130/80 11/22/19 08:43 74 130/80 11/22/19 08:02 98.1 F 74 20 130/80 95 11/22/19 05:43 91 L - Problem List & Annotations (1) Myocarditis due to COVID-19 virus SNOMED Code(s): 5837457373797789 Code(s): U07.1 - COVID-19; I40.0 - INFECTIVE MYOCARDITIS Status: Acute Current Visit: Yes (2) COVID-19 SNOMED Code(s): 997715393 Code(s): U07.1 - COVID-19 Status: Acute Current Visit: Yes (3) Diabetes type 2, uncontrolled SNOMED Code(s): 348157360, 042055554 Code(s): E11.65 - TYPE 2 DIABETES MELLITUS WITH HYPERGLYCEMIA Status: Acute Current Visit: Yes (4) Pneumonia due to 2019 novel coronavirus SNOMED Code(s): 748857188219266104 Code(s): U07.1 - COVID-19; J12.89 - OTHER VIRAL PNEUMONIA Status: Acute Current Visit: Yes (5) CAD (coronary artery disease) SNOMED Code(s): 78393465 Code(s): I25.10 - ATHSCL HEART DISEASE OF [place] CORONARY ARTERY W/O ANG PCTRS Status: Acute Current Visit: Yes (6) HTN (hypertension) SNOMED Code(s): 26191117 Code(s): I10 - ESSENTIAL (PRIMARY) HYPERTENSION Status: Acute Current Visit: Yes - Problem List Review Problem List Initiated/Reviewed/Updated: Yes - My Orders Last 24 Hours: My Active Orders 11/21/19 15:00 Pharmacy to Dose - Vancomycin 1 dose .XX ASDIRECTED PRN 11/21/19 Dinner Consistent Carbohydrate Diet [DIET] 11/21/19 20:00 Remdesivir (Eua) [Remdesivir (EUA)] 100 mg Sodium Chloride 0.9% [Normal Saline] 100 ml IV Q24H 11/21/19 21:00 Metoprolol Tartrate [Lopressor] 25 mg PO Q12H 11/22/19 06:00 Vancomycin 1.75 gm Sodium Chloride 0.9% [Normal Saline] 500 ml IV Q12H 11/22/19 09:00 Aspirin [Halfprin] 81 mg PO DAILY Insulin Glarg,Human.Rec.Analog [LantUS] 5 unit SUBCUT DAILY Losartan [Cozaar] 50 mg PO DAILY 11/22/19 22:00 aPTT [PTT,PARTIAL THROMBOPLSTIN TIME] [COAG] Timed 11/23/19 05:00 VANCOMYCIN TROUGH [CHEM] Timed 11/24/19 07:00 CBC W/O DIFF,HEMOGRAM [HEME] MOTH@0700 11/28/19 07:00 CBC W/O DIFF,HEMOGRAM [HEME] MOTH@0700 12/01/19 07:00 CBC W/O DIFF,HEMOGRAM [HEME] MOTH@0700 12/05/19 07:00 CBC W/O DIFF,HEMOGRAM [HEME] MOTH@0700 12/08/19 07:00 CBC W/O DIFF,HEMOGRAM [HEME] MOTH@0700 12/12/19 07:00 CBC W/O DIFF,HEMOGRAM [HEME] MOTH@0700 - Plan Plan:: 11/20/2019 69-year-old male with COVID-19 pneumonia and possible myocarditis. * Oxygen saturations decreased on admission approximately 81% on room air. * Troponin elevated at 0.146. * Cardiology recommended trending troponin, echocardiogram, and heparin. * CT of the chest showed multifocal peripheral airspace opacity concerning for multi lobar pneumonia. Cardiomegaly. Prominent hilar lymph nodes present. * WBC 5.1, CRP 9.5, d-dimer 1.77, LDH 410, ferritin 2210 Acute renal injury versus chronic renal insufficiency Metabolic alkalosis likely secondary to volume contraction. Hyponatremia/hypokalemia * Given 40 mEq of potassium in the emergency department * Started on normal saline. * Need to be especially careful with fluid status in COVID patients. * Would benefit from old records Type 2 diabetes * On metformin, glipizide and Ozempic. * Unknown hemoglobin A1c. * Initial glucose 193 nonfasting Coronary artery disease, hypertension * Moderate grade coronary atherosclerosis found on CT angiogram of the chest * EKG significant for right bundle branch block with left anterior fascicular block. Anterior Q waves and left ventricular hypertrophy. * Home meds include metoprolol, enalapril, rosuvastatin, hydrochlorothiazide, and amlodipine 11/21/2019 COVID-19 with pneumonia and myocarditis Reduced ejection fraction heart failure Cardiomegaly Blood cultures positive for gram-positive cocci * Echocardiogram, limited 1. Left ventricular ejection fraction 30 to 35%. 2. Global and severely decreased left ventricular systolic function 3. Impaired relaxation pattern of LV diastolic filling. Grade 1 4. Moderate proximal septal hypertrophy. 5. Mildly reduced right ventricular systolic function. 6. Mild aortic valve regurgitation. 7. Mild mitral valve regurgitation. 8. Mild tricuspid valve regurgitation. 9. No recent echocardiogram for comparison. * Respiratory support decreased overnight from 5 L to 4 L * No change in troponin with repeat troponin 0.147 * CBC 5.1, d-dimer 1.34, CRP 9.8 Acute renal injuryresolved, metabolic alkalosis/hyponatremia/hypokalemiaimproved * Estimated GFR greater than 60, creatinine 1.2, BUN 20 * Corrected sodium 142 * Potassium 3.4 * Bicarb 30 * Positive fluid balance and weight loss Type 2 diabetes * Blood sugars in the 200s * Hemoglobin A1c 8.1 Coronary artery disease, hypertension * Significant systolic dysfunction, see above * Blood pressure: Systolic blood pressure 130-146, diastolic blood pressure 69-8 7 * On metoprolol tartrate 25 mg twice daily, Norvasc 5 mg daily, losartan 50 mg daily 11/22/2019 COVID-19 with pneumonia and myocarditis Reduced ejection fraction heart failure Cardiomegaly Blood cultures positive for gram-positive cocci * Currently on 4 L nasal cannula with improved air exchange. * D-dimer 1.41, CRP 7.7 * Troponin is down to 0.076 * Currently on remdesivir, dexamethasone, Rocephin, vancomycin, and azithromycin * Awaiting results of blood culture. Uncontrolled type 2 diabetes, coronary artery disease, hypertension, hypon atremia * Sodium 134 * BUN 19, creatinine 1.1, estimated GFR greater than 60 * Glucose as high as 305 * Started Lantus this morning. Plan * Admit to floor * Stop heparin drip * Follow blood sugars and increase Lantus if blood sugars continue to be poorly controlled * FiO2 to keep SPO2 greater than 88% * remdesivir and dexamethasone day 3 * Rocephin and azithromycin day 3 * Continue vancomycin while we await culture results * Closely follow renal function. Consider Recinos catheter. * Strict I's and O's and daily weights. * Continue metoprolol, losartan, rosuvastatin, and amlodipine. * Continue sliding scale insulin with glucose monitoring before each meal and bedtime. * Continue alogliptin. Was recent study showing that diabetics on sitagliptin had a 50% reduction in mortality. We do not have sitagliptin on formulary. * Hold enalapril and hydrochlorothiazide secondary to renal function and hypovolemia. * CBC, CMP, magnesium, phosphorus, d-dimer, CRP, and hemoglobin A1c in the morning. VTE prophylaxis with Lovenox CODE STATUS: Full code Disposition: Admit to floor. Length of stay will be at least 5 days for remdesivir treatment.
[2019-11-22] MEDS: REMDESIVIR (EUA) 100 MG in Sodium Chloride 0.9% 100 ML IV SCH (21:31)
[2019-11-22] MEDS: cefTRIAXone 2 GM in Sodium Chloride 0.9% 100 ML IV SCH (21:31)
[2019-11-22] MEDS: Azithromycin 500 MG in Sodium Chloride 0.9% 250 ML IV SCH (21:31)
[2019-11-22] MEDS: Dexamethasone 4 MG Tab PO SCH (21:32)
[2019-11-23] MEDS: Vancomycin 1.75 GM in Sodium Chloride 0.9% 500 ML IV SCH (07:02)
[2019-11-23] MEDS ORDERED: Vancomycin 2 GM in Sodium Chloride 0.9% 500 ML IV SCH (08:00)
[2019-11-23] MEDS: Insulin Lispro 100 Units/ML 3 ML Vial SUBCUT SCH ×4 (08:43→21:47)
[2019-11-23] MEDS: Insulin Glarg,Human.Rec.Analog 100 Unit/ML SUBCUT SCH (08:44)
[2019-11-23] MEDS: Rosuvastatin 10 MG Tab PO SCH (08:45)
[2019-11-23] MEDS: Aspirin 81 MG Tab.EC PO SCH (08:46)
[2019-11-23] MEDS: Tamsulosin 0.4 MG Cap.ER PO SCH (08:46)
[2019-11-23] MEDS: Losartan 100 MG Tab PO SCH (08:52)
[2019-11-23] MEDS: Metoprolol Tartrate 25 MG Tab PO SCH ×2 (08:53→21:43)
[2019-11-23] MEDS: amLODIPine 5 MG Tab PO SCH (08:53)
[2019-11-23] MEDS ORDERED: Enoxaparin 40 MG/0.4 ML Syringe SUBCUT SCH (09:00)
--- NOTE | 2019-11-23 13:40 | PCM.PN ---
- General Info Date of Service: 11/23/19 Admission Dx/Problem (Free Text): Admission Diagnosis/Problem Admission Diagnosis/Problem Hypoxia Subjective Update: Patient continues to improve. He is down to 2 L nasal cannula. His appetite is improving. He is much less short of breath. Functional Status: Reports: Pain Controlled - Review of Systems General: Reports: No Symptoms HEENT: Reports: No Symptoms Pulmonary: Reports: Shortness of Breath, Cough Cardiovascular: Reports: No Symptoms Gastrointestinal: Reports: No Symptoms Genitourinary: Reports: No Symptoms Musculoskeletal: Reports: No Symptoms - Patient Data Vitals - Most Recent: Last Vital Signs Temp 97.9 F 11/23/19 06:01 Pulse 83 11/23/19 09:18 Resp 24 H 11/23/19 08:49 BP 132/72 11/23/19 08:53 Pulse Ox 93 L 11/23/19 09:18 Weight - Most Recent: 112.264 kg I&O - Last 24 Hours: Intake & Output 11/22/19 11/23/19 11/23/19 22:59 06:59 14:59 Intake Total 1680 1150 300 Output Total 800 500 Balance 880 650 300 Lab Results Last 24 Hours: Laboratory Results - last 24 hr 11/22/19 11/22/19 11/22/19 Range/Units 17:09 21:40 22:02 WBC (4.23-9.07) K/mm3 RBC (4.63-6.08) M/mm3 Hgb (13.7-17.5) gm/dl Hct (40.1-51.0) % MCV (79.0-92.2) fl MCH (25.7-32.2) pg MCHC (32.2-35.5) g/dl RDW Std Deviation (35.1-43.9) fL Plt Count (163-337) K/mm3 MPV (9.4-12.3) fl Neut % (Auto) (34.0-67.9) % Lymph % (Auto) (21.8-53.1) % [place] % (Auto) (5.3-12.2) % Eos % (Auto) (0.8-7.0) Baso % (Auto) (0.1-1.2) % Neut # (Auto) (1.78-5.38) K/mm3 Lymph # (Auto) (1.32-3.57) K/mm3 [place] # (Auto) (0.30-0.82) K/mm3 Eos # (Auto) (0.04-0.54) K/mm3 Baso # (Auto) (0.01-0.08) K/mm3 Manual Slide Review APTT 28 D (22-31) SECONDS D-Dimer, Quantitative (0.19-0.50) mg/L Sodium (136-145) mEq/L Potassium (3.5-5.1) mEq/L Chloride (98-107) mEq/L Carbon Dioxide (21-32) mEq/L Anion Gap (5-15) BUN (7-18) mg/dL Creatinine (0.7-1.3) mg/dL Est Cr Clr Drug Dosing mL/min Estimated GFR (MDRD) (>60) mL/min BUN/Creatinine Ratio (14-18) Glucose (83-115) mg/dL POC Glucose 228 H 212 H (83-110) mg/dL Calcium (8.5-10.1) mg/dL Phosphorus (2.6-4.7) mg/dL Magnesium (1.8-2.4) mg/dl Total Bilirubin (0.2-1.0) mg/dL AST (15-37) U/L ALT (16-63) U/L Alkaline Phosphatase (46-116) U/L C-Reactive Protein (<1.0) mg/dL Total Protein (6.4-8.2) g/dl Albumin (3.4-5.0) g/dl Globulin gm/dL Albumin/Globulin Ratio (1-2) Vancomycin Trough (10.0-20.0) 11/23/19 11/23/19 11/23/19 Range/Units 05:13 05:13 05:13 WBC 4.06 L (4.23-9.07) K/mm3 RBC 4.36 L (4.63-6.08) M/mm3 Hgb 13.2 L (13.7-17.5) gm/dl Hct 41.2 (40.1-51.0) % MCV 94.5 H (79.0-92.2) fl MCH 30.3 (25.7-32.2) pg MCHC 32.0 L (32.2-35.5) g/dl RDW Std Deviation 44.3 H (35.1-43.9) fL Plt Count 206 (163-337) K/mm3 MPV 11.0 (9.4-12.3) fl Neut % (Auto) 84.5 H (34.0-67.9) % Lymph % (Auto) 9.4 L (21.8-53.1) % Maries % (Auto) 5.2 L (5.3-12.2) % Eos % (Auto) 0 L (0.8-7.0) Baso % (Auto) 0.2 (0.1-1.2) % Neut # (Auto) 3.43 (1.78-5.38) K/mm3 Lymph # (Auto) 0.38 L (1.32-3.57) K/mm3 [place]ies # (Auto) 0.21 L (0.30-0.82) K/mm3 Eos # (Auto) 0.00 L (0.04-0.54) K/mm3 Baso # (Auto) 0.01 (0.01-0.08) K/mm3 Manual Slide Review Normal smear APTT (22-31) SECONDS D-Dimer, Quantitative 2.69 H (0.19-0.50) mg/L Sodium (136-145) mEq/L Potassium (3.5-5.1) mEq/L Chloride (98-107) mEq/L Carbon Dioxide (21-32) mEq/L Anion Gap (5-15) BUN (7-18) mg/dL Creatinine (0.7-1.3) mg/dL Est Cr Clr Drug Dosing mL/min Estimated GFR (MDRD) (>60) mL/min BUN/Creatinine Ratio (14-18) Glucose (83-115) mg/dL POC Glucose (83-110) mg/dL Calcium (8.5-10.1) mg/dL Phosphorus (2.6-4.7) mg/dL Magnesium (1.8-2.4) mg/dl Total Bilirubin (0.2-1.0) mg/dL AST (15-37) U/L ALT (16-63) U/L Alkaline Phosphatase (46-116) U/L C-Reactive Protein (<1.0) mg/dL Total Protein (6.4-8.2) g/dl Albumin (3.4-5.0) g/dl Globulin gm/dL Albumin/Globulin Ratio (1-2) Vancomycin Trough 12.5 (10.0-20.0) 11/23/19 11/23/19 11/23/19 Range/Units 05:13 06:15 12:19 WBC (4.23-9.07) K/mm3 RBC (4.63-6.08) M/mm3 Hgb (13.7-17.5) gm/dl Hct (40.1-51.0) % MCV (79.0-92.2) fl MCH (25.7-32.2) pg MCHC (32.2-35.5) g/dl RDW Std Deviation (35.1-43.9) fL Plt Count (163-337) K/mm3 MPV (9.4-12.3) fl Neut % (Auto) (34.0-67.9) % Lymph % (Auto) (21.8-53.1) % [place] % (Auto) (5.3-12.2) % Eos % (Auto) (0.8-7.0) Baso % (Auto) (0.1-1.2) % Neut # (Auto) (1.78-5.38) K/mm3 Lymph # (Auto) (1.32-3.57) K/mm3 [place] # (Auto) (0.30-0.82) K/mm3 Eos # (Auto) (0.04-0.54) K/mm3 Baso # (Auto) (0.01-0.08) K/mm3 Manual Slide Review APTT (22-31) SECONDS D-Dimer, Quantitative (0.19-0.50) mg/L Sodium 135 L (136-145) mEq/L Potassium 3.4 L (3.5-5.1) mEq/L Chloride 98 (98-107) mEq/L Carbon Dioxide 28 (21-32) mEq/L Anion Gap 12.4 (5-15) BUN 20 H (7-18) mg/dL Creatinine 1.0 (0.7-1.3) mg/dL Est Cr Clr Drug Dosing 78.78 mL/min Estimated GFR (MDRD) > 60 (>60) mL/min BUN/Creatinine Ratio 20.0 H (14-18) Glucose 288 H (83-115) mg/dL POC Glucose 276 H 279 H (83-110) mg/dL Calcium 8.1 L (8.5-10.1) mg/dL Phosphorus 2.9 (2.6-4.7) mg/dL Magnesium 1.7 L (1.8-2.4) mg/dl Total Bilirubin 0.8 (0.2-1.0) mg/dL AST 66 H (15-37) U/L ALT 91 H (16-63) U/L Alkaline Phosphatase 43 L (46-116) U/L C-Reactive Protein 4.5 H* (<1.0) mg/dL Total Protein 6.1 L (6.4-8.2) g/dl Albumin 2.4 L (3.4-5.0) g/dl Globulin 3.7 gm/dL Albumin/Globulin Ratio 0.7 L (1-2) Vancomycin Trough (10.0-20.0) Av Results Last 24 Hours: Microbiology 11/20/19 12:20 Aerobic Blood Culture - Preliminary Blood - Venous - Lab Draw NO GROWTH AFTER 3 DAYS Anaerobic Blood Culture - Preliminary NO GROWTH AFTER 3 DAYS 11/20/19 12:10 Aerobic Blood Culture - Final Blood - Venous Staph Hominis Ss Hominis Anaerobic Blood Culture - Preliminary NO GROWTH AFTER 3 DAYS Med Orders - Current: Current Medications Acetaminophen (Tylenol) 650 mg PO Q4H PRN PRN Reason: Pain (Mild 1-3)/fever Last Admin: 11/22/19 00:16 Dose: 650 mg Documented by: Alogliptin Benzoate (Alogliptin) 25 mg PO DAILY [facility] Last Admin: 11/23/19 08:46 Dose: 25 mg Documented by: Amlodipine Besylate (Norvasc) 5 mg PO DAILY [facility] Last Admin: 11/23/19 08:53 Dose: 5 mg Documented by: Aspirin (Halfprin) 81 mg PO DAILY [facility] Last Admin: 11/23/19 08:46 Dose: 81 mg Documented by: Dexamethasone (Dexamethasone) 6 mg PO Q24H [facility] Stop: 11/29/19 20:01 Last Admin: 11/22/19 21:32 Dose: 6 mg Documented by: Dextrose/Water (Dextrose 50% In Water) 50 ml IVPUSH ASDIRECTED PRN PRN Reason: Hypoglycemia Enoxaparin Sodium (Lovenox) 40 mg SUBCUT BID [facility] Remdesivir 100 mg/ Sodium (Chloride) 100 mls @ 100 mls/hr IV Q24H [facility] Stop: 11/24/19 20:59 Last Admin: 11/22/19 21:31 Dose: 100 mls/hr Documented by: Ceftriaxone Sodium 2 gm/ (Sodium Chloride) 100 mls @ 200 mls/hr IV Q24H [facility] Stop: 11/24/19 20:29 Last Admin: 11/22/19 21:31 Dose: 200 mls/hr Documented by: Insulin Glargine (Lantus) 5 unit SUBCUT DAILY [facility] Last Admin: 11/23/19 08:44 Dose: 5 units Documented by: Insulin Human Lispro (Humalog) 0 unit SUBCUT QIDACANDBED [facility]; Protocol Last Admin: 11/23/19 12:21 Dose: 3 units Documented by: Losartan Potassium (Cozaar) 50 mg PO DAILY [facility] Last Admin: 11/23/19 08:52 Dose: 50 mg Documented by: Metoprolol Tartrate (Lopressor) 25 mg PO Q12H [facility] Last Admin: 11/23/19 08:53 Dose: 25 mg Documented by: Rosuvastatin Calcium (Crestor) 5 mg PO DAILY [facility] Last Admin: 11/23/19 08:45 Dose: 5 mg Documented by: Tamsulosin HCl (Flomax) 0.4 mg PO DAILY [facility] Last Admin: 11/23/19 08:46 Dose: 0.4 mg Documented by: Discontinued Medications Enoxaparin Sodium (Lovenox) 40 mg SUBCUT BEDTIME [facility] Enoxaparin Sodium (Lovenox) 40 mg SUBCUT DAILY [facility] Last Admin: 11/23/19 08:45 Dose: 40 mg Documented by: Heparin Sodium (Porcine) (Heparin Sodium) 4,000 units IVPUSH ONETIME ONE Stop: 11/20/19 20:46 Last Admin: 11/20/19 22:45 Dose: 4,000 units Documented by: Heparin Sodium (Porcine) (Heparin Sodium) 1,000 units IV ONETIME ONE Stop: 11/21/19 04:36 Last Admin: 11/21/19 04:54 Dose: 1,000 units Documented by: Heparin Sodium (Porcine) (Heparin Sodium) 1,000 units IV ONETIME ONE Stop: 11/21/19 13:01 Last Admin: 11/21/19 13:00 Dose: 1,000 units Documented by: Heparin Sodium (Porcine) (Heparin Sodium) Confirm Administered Dose 5,000 units .ROUTE .STK-MED ONE Stop: 11/21/19 12:48 Last Admin: 11/21/19 13:22 Dose: Not Given Documented by: Sodium Chloride (Normal Saline) 1,000 mls @ 150 mls/hr IV ONETIME ONE Stop: 11/20/19 18:30 Last Admin: 11/20/19 12:12 Dose: 150 mls/hr Documented by: Sodium Chloride (Normal Saline) 100 mls @ 60 mls/hr IV ASDIRECTED [facility] Last Admin: 11/20/19 15:05 Dose: 60 mls/hr Documented by: Remdesivir 200 mg/ Sodium (Chloride) 250 mls @ 250 mls/hr IV ONETIME ONE Stop: 11/20/19 19:42 Last Admin: 11/20/19 22:43 Dose: 250 mls/hr Documented by: Azithromycin 500 mg/ Sodium (Chloride) 250 mls @ 250 mls/hr IV Q24H [facility] Stop: 11/22/19 21:59 Last Admin: 11/22/19 21:31 Dose: 250 mls/hr Documented by: Heparin Sodium/Dextrose (Heparin 25,000 Units In D5w 500 Ml) 25,000 units in 500 mls @ 20 mls/hr IV TITRATE [facility]; Protocol Last Admin: 11/21/19 19:32 Dose: 1,445.4 units/hr, 28.908 mls/hr Documented by: Sodium Chloride (Normal Saline) 250 mls @ 125 mls/hr IV ASDIRECTED [facility] Stop: 11/21/19 18:00 Last Admin: 11/21/19 13:23 Dose: 125 mls/hr Documented by: Vancomycin HCl 2 gm/ Sodium (Chloride) 500 mls @ 250 mls/hr IV ONETIME ONE Stop: 11/21/19 17:59 Last Admin: 11/21/19 17:45 Dose: 250 mls/hr Documented by: Vancomycin HCl 1.75 gm/ Sodium (Chloride) 500 mls @ 250 mls/hr IV Q12H [facility] Last Admin: 11/23/19 07:02 Dose: Not Given Documented by: Vancomycin HCl 2 gm/ Sodium (Chloride) 500 mls @ 250 mls/hr IV Q12H [facility] Last Admin: 11/23/19 08:47 Dose: 250 mls/hr Documented by: Iopamidol (Isovue-370 (76%)) 100 ml IVPUSH ONETIME ONE Stop: 11/20/19 14:17 Last Admin: 11/20/19 15:05 Dose: 100 ml Documented by: Metoprolol Tartrate (Lopressor) 50 mg PO DAILY [facility] Last Admin: 11/21/19 08:10 Dose: 50 mg Documented by: Potassium Chloride (Klor-Con M20) 40 meq PO ONETIME ONE Stop: 11/20/19 15:31 Last Admin: 11/20/19 15:55 Dose: 40 meq Documented by: Potassium Chloride (Klor-Con M20) 40 meq PO ONETIME ONE Stop: 11/21/19 20:56 Last Admin: 11/21/19 21:33 Dose: 40 meq Documented by: Sodium Chloride (Saline Flush) 10 ml FLUSH ONETIME ONE Stop: 11/20/19 14:17 Last Admin: 11/20/19 15:05 Dose: 10 ml Documented by: Vancomycin HCl (Pharmacy To Dose - Vancomycin) 1 dose .XX ASDIRECTED PRN PRN Reason: RX TO DOSE VANCO - Exam Quality Assessment: Supplemental Oxygen General: Alert HEENT: Pupils Equal, Mucous Membr. Moist/[place] Neck: Supple Lungs: Clear to Auscultation, Normal Respiratory Effort Cardiovascular: Regular Rate, Regular Rhythm GI/Abdominal Exam: Normal Bowel Sounds, Soft, Non-Tender, No Distention Extremities: Normal Inspection, Normal Range of Motion, No Pedal Edema Skin: Warm, Dry, Intact Psy/Mental Status: Alert, Normal Affect, Normal Mood Sepsis Event Note - Evaluation Sepsis Screening Result: No Definite Risk - Focused Exam Vital Signs: Vital Signs Temp Pulse Resp BP Pulse Ox Pulse Ox 11/23/19 09:18 83 93 L 11/23/19 09:08 91 L 11/23/19 09:00 77 93 L 11/23/19 08:53 71 132/72 11/23/19 08:52 132/72 11/23/19 08:49 74 24 H 132/72 96 11/23/19 06:01 97.9 F 70 20 128/84 92 L 11/23/19 05:51 93 L - Problem List & Annotations (1) Myocarditis due to COVID-19 virus SNOMED Code(s): 1425276766806123 Code(s): U07.1 - COVID-19; I40.0 - INFECTIVE MYOCARDITIS Status: Acute Current Visit: Yes (2) COVID-19 SNOMED Code(s): 436611203 Code(s): U07.1 - COVID-19 Status: Acute Current Visit: Yes (3) Diabetes type 2, uncontrolled SNOMED Code(s): 793536762, 984066664 Code(s): E11.65 - TYPE 2 DIABETES MELLITUS WITH HYPERGLYCEMIA Status: Acute Current Visit: Yes (4) Pneumonia due to 2019 novel coronavirus SNOMED Code(s): 276884178830823772 Code(s): U07.1 - COVID-19; J12.89 - OTHER VIRAL PNEUMONIA Status: Acute Current Visit: Yes (5) CAD (coronary artery disease) SNOMED Code(s): 78326980 Code(s): I25.10 - ATHSCL HEART DISEASE OF [place] CORONARY ARTERY W/O ANG PCTRS Status: Acute Current Visit: Yes (6) HTN (hypertension) SNOMED Code(s): 49007185 Code(s): I10 - ESSENTIAL (PRIMARY) HYPERTENSION Status: Acute Current Visit: Yes - Problem List Review Problem List Initiated/Reviewed/Updated: Yes - My Orders Last 24 Hours: My Active Orders 11/23/19 21:00 Enoxaparin [Lovenox] 40 mg SUBCUT BID 11/24/19 07:00 CBC W/O DIFF,HEMOGRAM [HEME] MOTH@0700 11/28/19 07:00 CBC W/O DIFF,HEMOGRAM [HEME] MOTH@0700 12/01/19 07:00 CBC W/O DIFF,HEMOGRAM [HEME] MOTH@0700 12/05/19 07:00 CBC W/O DIFF,HEMOGRAM [HEME] MOTH@0700 12/08/19 07:00 CBC W/O DIFF,HEMOGRAM [HEME] MOTH@0700 12/12/19 07:00 CBC W/O DIFF,HEMOGRAM [HEME] MOTH@0700 - Plan Plan:: 11/20/2019 69-year-old male with COVID-19 pneumonia and possible myocarditis. * Oxygen saturations decreased on admission approximately 81% on room air. * Troponin elevated at 0.146. * Cardiology recommended trending troponin, echocardiogram, and heparin. * CT of the chest showed multifocal peripheral airspace opacity concerning for multi lobar pneumonia. Cardiomegaly. Prominent hilar lymph nodes present. * WBC 5.1, CRP 9.5, d-dimer 1.77, LDH 410, ferritin 2210 Acute renal injury versus chronic renal insufficiency Metabolic alkalosis likely secondary to volume contraction. Hyponatremia/hypokalemia * Given 40 mEq of potassium in the emergency department * Started on normal saline. * Need to be especially careful with fluid status in COVID patients. * Would benefit from old records Type 2 diabetes * On metformin, glipizide and Ozempic. * Unknown hemoglobin A1c. * Initial glucose 193 nonfasting Coronary artery disease, hypertension * Moderate grade coronary atherosclerosis found on CT angiogram of the chest * EKG significant for right bundle branch block with left anterior fascicular block. Anterior Q waves and left ventricular hypertrophy. * Home meds include metoprolol, enalapril, rosuvastatin, hydrochlorothiazide, and amlodipine 11/21/2019 COVID-19 with pneumonia and myocarditis Reduced ejection fraction heart failure Cardiomegaly Blood cultures positive for gram-positive cocci * Echocardiogram, limited 1. Left ventricular ejection fraction 30 to 35%. 2. Global and severely decreased left ventricular systolic function 3. Impaired relaxation pattern of LV diastolic filling. Grade 1 4. Moderate proximal septal hypertrophy. 5. Mildly reduced right ventricular systolic function. 6. Mild aortic valve regurgitation. 7. Mild mitral valve regurgitation. 8. Mild tricuspid valve regurgitation. 9. No recent echocardiogram for comparison. * Respiratory support decreased overnight from 5 L to 4 L * No change in troponin with repeat troponin 0.147 * CBC 5.1, d-dimer 1.34, CRP 9.8 Acute renal injuryresolved, metabolic alkalosis/hyponatremia/hypokalemiaimproved * Estimated GFR greater than 60, creatinine 1.2, BUN 20 * Corrected sodium 142 * Potassium 3.4 * Bicarb 30 * Positive fluid balance and weight loss Type 2 diabetes * Blood sugars in the 200s * Hemoglobin A1c 8.1 Coronary artery disease, hypertension * Significant systolic dysfunction, see above * Blood pressure: Systolic blood pressure 130-146, diastolic blood pressure 69- 87 * On metoprolol tartrate 25 mg twice daily, Norvasc 5 mg daily, losartan 50 mg daily 11/22/2019 COVID-19 with pneumonia and myocarditis Reduced ejection fraction heart failure Cardiomegaly Blood cultures positive for gram-positive cocci * Currently on 4 L nasal cannula with improved air exchange. * D-dimer 1.41, CRP 7.7 * Troponin is down to 0.076 * Currently on remdesivir, dexamethasone, Rocephin, vancomycin, and azithromycin * Awaiting results of blood culture. Uncontrolled type 2 diabetes, coronary artery disease, hypertension, hyponatremia * Sodium 134 * BUN 19, creatinine 1.1, estimated GFR greater than 60 * Glucose as high as 305 * Started Lantus this morning. 11/23/2019 COVID-19 with pneumonia and myocarditis Reduced ejection fraction heart failure Cardiomegaly Blood cultures positive for coag negative staphStaph hominis SS hominis out of 1 of 4 tubes * Currently on 2 L nasal cannula with improved air exchange. * D-dimer 2.69, CRP 4.5 * Currently on remdesivir, dexamethasone, Rocephin, stop vancomycin, * Blood culture is most likely skin contaminant since it is a coag negative staph and only out of 1 of 4 tubes. * Completed azithromycin Uncontrolled type 2 diabetes, coronary artery disease, hypertension, hyponatremia * Hemoglobin A1c 8.1 * Sodium 135 * BUN 20, creatinine 1.1, estimated GFR greater than 60 * Blood sugars still in the mid to upper 200s * Currently on Lantus 5 units daily Plan * Admit to floor * Increase Lantus to 5 units twice daily * Follow blood sugars * FiO2 to keep SPO2 greater than 88% * remdesivir and dexamethasone day 4 * Rocephin day 3 of 5 * Stop vancomycin. Blood culture is skin contaminant * Closely follow renal function. * Strict I's and O's and daily weights. * Continue metoprolol, losartan, rosuvastatin, and amlodipine. * Continue sliding scale insulin with glucose monitoring before each meal and bedtime. * Continue alogliptin. Was recent study showing that diabetics on sitagliptin had a 50% reduction in mortality. We do not have sitagliptin on formulary. * Hold enalapril and hydrochlorothiazide secondary to renal function and hypovolemia. * CBC, CMP, magnesium, phosphorus, d-dimer, CRP, VTE prophylaxis with Lovenox CODE STATUS: Full code Disposition: Admit to floor. Length of stay greater than 96 hours for treatment of COVID-19 and remdesivir treatment.
[2019-11-23] MEDS ORDERED: Potassium Chloride 20 MEQ Tab.ER PO ONE (21:28)
[2019-11-23] MEDS ORDERED: Magnesium Sulfate/Water 2 GM in Premix Bag 1 BAG IV ONE (21:29)
[2019-11-23] MEDS: REMDESIVIR (EUA) 100 MG in Sodium Chloride 0.9% 100 ML IV SCH (21:38)
[2019-11-23] MEDS: cefTRIAXone 2 GM in Sodium Chloride 0.9% 100 ML IV SCH (21:38)
[2019-11-23] MEDS: Enoxaparin 40 MG/0.4 ML Syringe SUBCUT SCH (21:41)
[2019-11-23] MEDS: Dexamethasone 4 MG Tab PO SCH (21:41)
[2019-11-24] MEDS: Losartan 100 MG Tab PO SCH (08:30)
[2019-11-24] MEDS: Metoprolol Tartrate 25 MG Tab PO SCH ×2 (08:32→21:56)
[2019-11-24] MEDS: Tamsulosin 0.4 MG Cap.ER PO SCH (08:32)
[2019-11-24] MEDS: Rosuvastatin 10 MG Tab PO SCH (08:32)
[2019-11-24] MEDS: Aspirin 81 MG Tab.EC PO SCH (08:32)
[2019-11-24] MEDS: amLODIPine 5 MG Tab PO SCH (08:33)
[2019-11-24] MEDS: Insulin Glarg,Human.Rec.Analog 100 Unit/ML SUBCUT SCH ×2 (08:33→22:01)
[2019-11-24] MEDS: Enoxaparin 40 MG/0.4 ML Syringe SUBCUT SCH ×2 (08:34→21:51)
[2019-11-24] MEDS: Insulin Lispro 100 Units/ML 3 ML Vial SUBCUT SCH ×4 (08:34→22:07)
[2019-11-24] MEDS: Benzonatate 100 MG Cap PO SCH ×2 (14:32→21:55)
--- NOTE | 2019-11-24 15:44 | PCM.PN ---
- General Info Date of Service: 11/24/19 Admission Dx/Problem (Free Text): Admission Diagnosis/Problem Admission Diagnosis/Problem Hypoxia Subjective Update: Dimas is having continued improvement. He is still on approximately 2 L nasal cannula. Appetite is better, he does feel still tired and weak. Functional Status: Reports: Pain Controlled - Review of Systems General: Reports: Fatigue HEENT: Reports: No Symptoms Pulmonary: Reports: Cough Cardiovascular: Reports: No Symptoms Gastrointestinal: Reports: No Symptoms Musculoskeletal: Reports: No Symptoms - Patient Data Vitals - Most Recent: Last Vital Signs Temp 97.9 F 11/24/19 11:10 Pulse 64 11/24/19 11:10 Resp 16 11/24/19 11:10 BP 146/93 H 11/24/19 11:10 Pulse Ox 94 L 11/24/19 11:10 Weight - Most Recent: 114.169 kg I&O - Last 24 Hours: Intake & Output 11/24/19 11/24/19 11/24/19 06:59 14:59 22:59 Intake Total 450 750 Output Total 1000 500 Balance -550 250 Lab Results Last 24 Hours: Laboratory Results - last 24 hr 11/23/19 11/23/19 11/24/19 Range/Units 17:25 21:36 05:04 WBC 3.71 L (4.23-9.07) K/mm3 RBC 4.51 L (4.63-6.08) M/mm3 Hgb 13.7 (13.7-17.5) gm/dl Hct 42.0 (40.1-51.0) % MCV 93.1 H (79.0-92.2) fl MCH 30.4 (25.7-32.2) pg MCHC 32.6 (32.2-35.5) g/dl RDW Std Deviation 43.0 (35.1-43.9) fL Plt Count 224 (163-337) K/mm3 MPV 11.1 (9.4-12.3) fl Neut % (Auto) 83.1 H (34.0-67.9) % Lymph % (Auto) 8.9 L (21.8-53.1) % [place] % (Auto) 6.5 (5.3-12.2) % Eos % (Auto) 0.5 L (0.8-7.0) Baso % (Auto) 0.5 (0.1-1.2) % Neut # (Auto) 3.08 (1.78-5.38) K/mm3 Lymph # (Auto) 0.33 L (1.32-3.57) K/mm3 [place] # (Auto) 0.24 L (0.30-0.82) K/mm3 Eos # (Auto) 0.02 L (0.04-0.54) K/mm3 Baso # (Auto) 0.02 (0.01-0.08) K/mm3 Manual Slide Review Normal smear Sodium (136-145) mEq/L Potassium (3.5-5.1) mEq/L Chloride (98-107) mEq/L Carbon Dioxide (21-32) mEq/L Anion Gap (5-15) BUN (7-18) mg/dL Creatinine (0.7-1.3) mg/dL Est Cr Clr Drug Dosing mL/min Estimated GFR (MDRD) (>60) mL/min BUN/Creatinine Ratio (14-18) Glucose (83-115) mg/dL POC Glucose 284 H 273 H (83-110) mg/dL Calcium (8.5-10.1) mg/dL Phosphorus (2.6-4.7) mg/dL Magnesium (1.8-2.4) mg/dl Total Bilirubin (0.2-1.0) mg/dL AST (15-37) U/L ALT (16-63) U/L Alkaline Phosphatase (46-116) U/L Total Protein (6.4-8.2) g/dl Albumin (3.4-5.0) g/dl Globulin gm/dL Albumin/Globulin Ratio (1-2) 11/24/19 11/24/19 11/24/19 Range/Units 05:04 05:49 11:08 WBC (4.23-9.07) K/mm3 RBC (4.63-6.08) M/mm3 Hgb (13.7-17.5) gm/dl Hct (40.1-51.0) % MCV (79.0-92.2) fl MCH (25.7-32.2) pg MCHC (32.2-35.5) g/dl RDW Std Deviation (35.1-43.9) fL Plt Count (163-337) K/mm3 MPV (9.4-12.3) fl Neut % (Auto) (34.0-67.9) % Lymph % (Auto) (21.8-53.1) % [place] % (Auto) (5.3-12.2) % Eos % (Auto) (0.8-7.0) Baso % (Auto) (0.1-1.2) % Neut # (Auto) (1.78-5.38) K/mm3 Lymph # (Auto) (1.32-3.57) K/mm3 [place] # (Auto) (0.30-0.82) K/mm3 Eos # (Auto) (0.04-0.54) K/mm3 Baso # (Auto) (0.01-0.08) K/mm3 Manual Slide Review Sodium 137 (136-145) mEq/L Potassium 3.9 (3.5-5.1) mEq/L Chloride 101 (98-107) mEq/L Carbon Dioxide 26 (21-32) mEq/L Anion Gap 13.9 (5-15) BUN 20 H (7-18) mg/dL Creatinine 0.8 (0.7-1.3) mg/dL Est Cr Clr Drug Dosing 98.47 mL/min Estimated GFR (MDRD) > 60 (>60) mL/min BUN/Creatinine Ratio 25.0 H (14-18) Glucose 295 H (83-115) mg/dL POC Glucose 275 H 281 H (83-110) mg/dL Calcium 8.2 L (8.5-10.1) mg/dL Phosphorus 2.7 (2.6-4.7) mg/dL Magnesium 2.0 (1.8-2.4) mg/dl Total Bilirubin 0.8 (0.2-1.0) mg/dL AST 95 H (15-37) U/L ALT 122 H (16-63) U/L Alkaline Phosphatase 46 (46-116) U/L Total Protein 6.1 L (6.4-8.2) g/dl Albumin 2.4 L (3.4-5.0) g/dl Globulin 3.7 gm/dL Albumin/Globulin Ratio 0.7 L (1-2) Av Results Last 24 Hours: Microbiology 11/20/19 12:20 Aerobic Blood Culture - Preliminary Blood - Venous - Lab Draw NO GROWTH AFTER 4 DAYS Anaerobic Blood Culture - Preliminary NO GROWTH AFTER 4 DAYS 11/20/19 12:10 Aerobic Blood Culture - Final Blood - Venous Staph Hominis Ss Hominis Anaerobic Blood Culture - Preliminary NO GROWTH AFTER 4 DAYS Med Orders - Current: Current Medications Acetaminophen (Tylenol) 650 mg PO Q4H PRN PRN Reason: Pain (Mild 1-3)/fever Last Admin: 11/22/19 00:16 Dose: 650 mg Documented by: Alogliptin Benzoate (Alogliptin) 25 mg PO DAILY [facility] Last Admin: 11/24/19 08:32 Dose: 25 mg Documented by: Amlodipine Besylate (Norvasc) 5 mg PO DAILY [facility] Last Admin: 11/24/19 08:33 Dose: 5 mg Documented by: Aspirin (Halfprin) 81 mg PO DAILY [facility] Last Admin: 11/24/19 08:32 Dose: 81 mg Documented by: Benzonatate (Tessalon Perles) 100 mg PO TID [facility] Last Admin: 11/24/19 14:32 Dose: 100 mg Documented by: Dexamethasone (Dexamethasone) 6 mg PO Q24H [facility] Stop: 11/29/19 20:01 Last Admin: 11/23/19 21:41 Dose: 6 mg Documented by: Dextrose/Water (Dextrose 50% In Water) 50 ml IVPUSH ASDIRECTED PRN PRN Reason: Hypoglycemia Enoxaparin Sodium (Lovenox) 40 mg SUBCUT BID [facility] Last Admin: 11/24/19 08:34 Dose: 40 mg Documented by: Guaifenesin/Codeine Phosphate (Robitussin Ac) 5 ml PO Q4H PRN PRN Reason: Cough Remdesivir 100 mg/ Sodium (Chloride) 100 mls @ 100 mls/hr IV Q24H [facility] Stop: 11/24/19 20:59 Last Admin: 11/23/19 21:38 Dose: 100 mls/hr Documented by: Ceftriaxone Sodium 2 gm/ (Sodium Chloride) 100 mls @ 200 mls/hr IV Q24H [facility] Stop: 11/24/19 20:29 Last Admin: 11/23/19 21:38 Dose: 200 mls/hr Documented by: Insulin Glargine (Lantus) 5 unit SUBCUT BID [facility] Last Admin: 11/24/19 08:33 Dose: 5 units Documented by: Insulin Human Lispro (Humalog) 0 unit SUBCUT QIDACANDBED [facility]; Protocol Last Admin: 11/24/19 11:44 Dose: 3 units Documented by: Losartan Potassium (Cozaar) 50 mg PO DAILY [facility] Last Admin: 11/24/19 08:30 Dose: 50 mg Documented by: Metoprolol Tartrate (Lopressor) 25 mg PO Q12H [facility] Last Admin: 11/24/19 08:32 Dose: 25 mg Documented by: Rosuvastatin Calcium (Crestor) 5 mg PO DAILY [facility] Last Admin: 11/24/19 08:32 Dose: 5 mg Documented by: Tamsulosin HCl (Flomax) 0.4 mg PO DAILY [facility] Last Admin: 11/24/19 08:32 Dose: 0.4 mg Documented by: Discontinued Medications Enoxaparin Sodium (Lovenox) 40 mg SUBCUT BEDTIME [facility] Enoxaparin Sodium (Lovenox) 40 mg SUBCUT DAILY [facility] Last Admin: 11/23/19 08:45 Dose: 40 mg Documented by: Heparin Sodium (Porcine) (Heparin Sodium) 4,000 units IVPUSH ONETIME ONE Stop: 11/20/19 20:46 Last Admin: 11/20/19 22:45 Dose: 4,000 units Documented by: Heparin Sodium (Porcine) (Heparin Sodium) 1,000 units IV ONETIME ONE Stop: 11/21/19 04:36 Last Admin: 11/21/19 04:54 Dose: 1,000 units Documented by: Heparin Sodium (Porcine) (Heparin Sodium) 1,000 units IV ONETIME ONE Stop: 11/21/19 13:01 Last Admin: 11/21/19 13:00 Dose: 1,000 units Documented by: Heparin Sodium (Porcine) (Heparin Sodium) Confirm Administered Dose 5,000 units .ROUTE .STK-MED ONE Stop: 11/21/19 12:48 Last Admin: 11/21/19 13:22 Dose: Not Given Documented by: Sodium Chloride (Normal Saline) 1,000 mls @ 150 mls/hr IV ONETIME ONE Stop: 11/20/19 18:30 Last Admin: 11/20/19 12:12 Dose: 150 mls/hr Documented by: Sodium Chloride (Normal Saline) 100 mls @ 60 mls/hr IV ASDIRECTED [facility] Last Admin: 11/20/19 15:05 Dose: 60 mls/hr Documented by: Remdesivir 200 mg/ Sodium (Chloride) 250 mls @ 250 mls/hr IV ONETIME ONE Stop: 11/20/19 19:42 Last Admin: 11/20/19 22:43 Dose: 250 mls/hr Documented by: Azithromycin 500 mg/ Sodium (Chloride) 250 mls @ 250 mls/hr IV Q24H [facility] Stop: 11/22/19 21:59 Last Admin: 11/22/19 21:31 Dose: 250 mls/hr Documented by: Heparin Sodium/Dextrose (Heparin 25,000 Units In D5w 500 Ml) 25,000 units in 500 mls @ 20 mls/hr IV TITRATE [facility]; Protocol Last Admin: 11/21/19 19:32 Dose: 1,445.4 units/hr, 28.908 mls/hr Documented by: Sodium Chloride (Normal Saline) 250 mls @ 125 mls/hr IV ASDIRECTED [facility] Stop: 11/21/19 18:00 Last Admin: 11/21/19 13:23 Dose: 125 mls/hr Documented by: Vancomycin HCl 2 gm/ Sodium (Chloride) 500 mls @ 250 mls/hr IV ONETIME ONE Stop: 11/21/19 17:59 Last Admin: 11/21/19 17:45 Dose: 250 mls/hr Documented by: Vancomycin HCl 1.75 gm/ Sodium (Chloride) 500 mls @ 250 mls/hr IV Q12H [facility] Last Admin: 11/23/19 07:02 Dose: Not Given Documented by: Vancomycin HCl 2 gm/ Sodium (Chloride) 500 mls @ 250 mls/hr IV Q12H [facility] Last Admin: 11/23/19 08:47 Dose: 250 mls/hr Documented by: Magnesium Sulfate 2 gm/ Premix 50 mls @ 25 mls/hr IV ONETIME ONE Stop: 11/23/19 23:28 Last Admin: 11/23/19 22:23 Dose: 25 mls/hr Documented by: Insulin Glargine (Lantus) 5 unit SUBCUT DAILY [facility] Last Admin: 11/23/19 08:44 Dose: 5 units Documented by: Iopamidol (Isovue-370 (76%)) 100 ml IVPUSH ONETIME ONE Stop: 11/20/19 14:17 Last Admin: 11/20/19 15:05 Dose: 100 ml Documented by: Metoprolol Tartrate (Lopressor) 50 mg PO DAILY [facility] Last Admin: 11/21/19 08:10 Dose: 50 mg Documented by: Potassium Chloride (Klor-Con M20) 40 meq PO ONETIME ONE Stop: 11/20/19 15:31 Last Admin: 11/20/19 15:55 Dose: 40 meq Documented by: Potassium Chloride (Klor-Con M20) 40 meq PO ONETIME ONE Stop: 11/21/19 20:56 Last Admin: 11/21/19 21:33 Dose: 40 meq Documented by: Potassium Chloride (Klor-Con M20) 40 meq PO ONETIME ONE Stop: 11/23/19 21:29 Last Admin: 11/23/19 21:40 Dose: 40 meq Documented by: Sodium Chloride (Saline Flush) 10 ml FLUSH ONETIME ONE Stop: 11/20/19 14:17 Last Admin: 11/20/19 15:05 Dose: 10 ml Documented by: Vancomycin HCl (Pharmacy To Dose - Vancomycin) 1 dose .XX ASDIRECTED PRN PRN Reason: RX TO DOSE VANCO - Exam Quality Assessment: Supplemental Oxygen General: Alert, Oriented HEENT: Pupils Equal, Mucous Membr. Moist/[place] Lungs: Clear to Auscultation, Normal Respiratory Effort Cardiovascular: Regular Rate, Regular Rhythm GI/Abdominal Exam: Normal Bowel Sounds, Soft, Non-Tender, No Distention Extremities: Normal Inspection, Normal Range of Motion, No Pedal Edema, Normal Capillary Refill Skin: Warm, Dry, Intact Psy/Mental Status: Alert, Normal Affect, Normal Mood Sepsis Event Note - Evaluation Sepsis Screening Result: No Definite Risk - Focused Exam Vital Signs: Vital Signs Temp Pulse Resp BP Pulse Ox 11/24/19 11:10 97.9 F 64 16 146/93 H 94 L 11/24/19 08:33 118/73 11/24/19 08:32 75 118/73 11/24/19 08:30 118/73 11/24/19 08:01 98.2 F 75 16 118/73 92 L - Problem List & Annotations (1) Myocarditis due to COVID-19 virus SNOMED Code(s): 3528438857851132 Code(s): U07.1 - COVID-19; I40.0 - INFECTIVE MYOCARDITIS Status: Acute Current Visit: Yes (2) COVID-19 SNOMED Code(s): 916168612 Code(s): U07.1 - COVID-19 Status: Acute Current Visit: Yes (3) Diabetes type 2, uncontrolled SNOMED Code(s): 624942888, 906770418 Code(s): E11.65 - TYPE 2 DIABETES MELLITUS WITH HYPERGLYCEMIA Status: Acute Current Visit: Yes (4) Pneumonia due to 2019 novel coronavirus SNOMED Code(s): 838402397299093606 Code(s): U07.1 - COVID-19; J12.89 - OTHER VIRAL PNEUMONIA Status: Acute Current Visit: Yes (5) CAD (coronary artery disease) SNOMED Code(s): 06408013 Code(s): I25.10 - ATHSCL HEART DISEASE OF [place] CORONARY ARTERY W/O ANG PCTRS Status: Acute Current Visit: Yes (6) HTN (hypertension) SNOMED Code(s): 98496564 Code(s): I10 - ESSENTIAL (PRIMARY) HYPERTENSION Status: Acute Current Visit: Yes - Problem List Review Problem List Initiated/Reviewed/Updated: Yes - My Orders Last 24 Hours: My Active Orders 11/23/19 21:00 Enoxaparin [Lovenox] 40 mg SUBCUT BID 11/24/19 09:00 Insulin Glarg,Human.Rec.Analog [LantUS] 5 unit SUBCUT BID 11/24/19 10:48 PT Evaluation and Treatment [CONS] Routine 11/24/19 13:45 Codeine/guaiFENesin [Robitussin AC] 5 ml PO Q4H PRN 11/24/19 15:00 Benzonatate [Tessalon Perles] 100 mg PO TID - Plan Plan:: 11/20/2019 69-year-old male with COVID-19 pneumonia and possible myocarditis. * Oxygen saturations decreased on admission approximately 81% on room air. * Troponin elevated at 0.146. * Cardiology recommended trending troponin, echocardiogram, and heparin. * CT of the chest showed multifocal peripheral airspace opacity concerning for multi lobar pneumonia. Cardiomegaly. Prominent hilar lymph nodes present. * WBC 5.1, CRP 9.5, d-dimer 1.77, LDH 410, ferritin 2210 Acute renal injury versus chronic renal insufficiency Metabolic alkalosis likely secondary to volume contraction. Hyponatremia/hypokalemia * Given 40 mEq of potassium in the emergency department * Started on normal saline. * Need to be especially careful with fluid status in COVID patients. * Would benefit from old records Type 2 diabetes * On metformin, glipizide and Ozempic. * Unknown hemoglobin A1c. * Initial glucose 193 nonfasting Coronary artery disease, hypertension * Moderate grade coronary atherosclerosis found on CT angiogram of the chest * EKG significant for right bundle branch block with left anterior fascicular block. Anterior Q waves and left ventricular hypertrophy. * Home meds include metoprolol, enalapril, rosuvastatin, hydrochlorothiazide, and amlodipine 11/21/2019 COVID-19 with pneumonia and myocarditis Reduced ejection fraction heart failure Cardiomegaly Blood cultures positive for gram-positive cocci * Echocardiogram, limited 1. Left ventricular ejection fraction 30 to 35%. 2. Global and severely decreased left ventricular systolic function 3. Impaired relaxation pattern of LV diastolic filling. Grade 1 4. Moderate proximal septal hypertrophy. 5. Mildly reduced right ventricular systolic function. 6. Mild aortic valve regurgitation. 7. Mild mitral valve regurgitation. 8. Mild tricuspid valve regurgitation. 9. No recent echocardiogram for comparison. * Respiratory support decreased overnight from 5 L to 4 L * No change in troponin with repeat troponin 0.147 * CBC 5.1, d-dimer 1.34, CRP 9.8 Acute renal injuryresolved, metabolic alkalosis/hyponatremia/hypokalemiaimproved * Estimated GFR greater than 60, creatinine 1.2, BUN 20 * Corrected sodium 142 * Potassium 3.4 * Bicarb 30 * Positive fluid balance and weight loss Type 2 diabetes * Blood sugars in the 200s * Hemoglobin A1c 8.1 Coronary artery disease, hypertension * Significant systolic dysfunction, see above * Blood pressure: Systolic blood pressure 130-146, diastolic blood pressure 69- 87 * On metoprolol tartrate 25 mg twice daily, Norvasc 5 mg daily, losartan 50 mg daily 11/22/2019 COVID-19 with pneumonia and myocarditis Reduced ejection fraction heart failure Cardiomegaly Blood cultures positive for gram-positive cocci * Currently on 4 L nasal cannula with improved air exchange. * D-dimer 1.41, CRP 7.7 * Troponin is down to 0.076 * Currently on remdesivir, dexamethasone, Rocephin, vancomycin, and azithromycin * Awaiting results of blood culture. Uncontrolled type 2 diabetes, coronary artery disease, hypertension, hyponatremia * Sodium 134 * BUN 19, creatinine 1.1, estimated GFR greater than 60 * Glucose as high as 305 * Started Lantus this morning. 11/23/2019 COVID-19 with pneumonia and myocarditis Reduced ejection fraction heart failure Cardiomegaly Blood cultures positive for coag negative staphStaph hominis SS hominis out of 1 of 4 tubes * Currently on 2 L nasal cannula with improved air exchange. * D-dimer 2.69, CRP 4.5 * Currently on remdesivir, dexamethasone, Rocephin, stop vancomycin, * Blood culture is most likely skin contaminant since it is a coag negative staph and only out of 1 of 4 tubes. * Completed azithromycin Uncontrolled type 2 diabetes, coronary artery disease, hypertension, hyponatremia * Hemoglobin A1c 8.1 * Sodium 135 * BUN 20, creatinine 1.1, estimated GFR greater than 60 * Blood sugars still in the mid to upper 200s * Currently on Lantus 5 units daily 11/24/2019 COVID-19 with pneumonia and myocarditis Reduced ejection fraction heart failure Cardiomegaly Blood cultures positive for coag negative staphStaph hominis SS hominis out of 1 of 4 tubes * Currently on 2 L nasal cannula with improved air exchange. * Currently on remdesivir, dexamethasone, Rocephin * Blood culture is most likely skin contaminant. * Completed azithromycin Uncontrolled type 2 diabetes, coronary artery disease, hypertension, * Hemoglobin A1c 8.1 * Sodium 137 * Estimated GFR greater than 60 * Blood sugars improving * Currently on Lantus 5 units twice daily Elevated liver enzymes: AST 95, ALT 122, total bilirubin 0.8. Hypoalbuminemia: Albumin 2.4. Likely secondary to protein malnutrition not liver disease Plan * Follow blood sugars * FiO2 to keep SPO2 greater than 88% * remdesivir and dexamethasone day 5 * Rocephin day 4 of 5 * Recheck CMP in the morning. * Discontinue strict I's and O's and daily weights. * Continue metoprolol, losartan, rosuvastatin, and amlodipine. * Continue sliding scale insulin with glucose monitoring before each meal and bedtime. * Continue alogliptin. Was recent study showing that diabetics on sitagliptin had a 50% reduction in mortality. We do not have sitagliptin on formulary. * Hold enalapril and hydrochlorothiazide secondary to renal function and hypovolemia. VTE prophylaxis with Lovenox CODE STATUS: Full code Disposition: Admit to floor. Length of stay greater than 96 hours for treatment of COVID-19 and remdesivir treatment.
[2019-11-24] MEDS: Codeine/guaiFENesin 10-100 MG/5 ML Syrup 5 ML Cup PO PRN ×2 (17:55→21:51)
[2019-11-24] MEDS ORDERED: Insulin Glarg,Human.Rec.Analog 100 Unit/ML SUBCUT ONE (18:00)
[2019-11-24] MEDS: Dexamethasone 4 MG Tab PO SCH (21:55)
[2019-11-24] MEDS: cefTRIAXone 2 GM in Sodium Chloride 0.9% 100 ML IV SCH (21:57)
[2019-11-24] MEDS: REMDESIVIR (EUA) 100 MG in Sodium Chloride 0.9% 100 ML IV SCH (21:58)
[2019-11-25] MEDS: Insulin Lispro 100 Units/ML 3 ML Vial SUBCUT SCH ×2 (09:29→13:02)
[2019-11-25] MEDS: amLODIPine 5 MG Tab PO SCH (09:30)
[2019-11-25] MEDS: Tamsulosin 0.4 MG Cap.ER PO SCH (09:30)
[2019-11-25] MEDS: Aspirin 81 MG Tab.EC PO SCH (09:33)
[2019-11-25] MEDS: Metoprolol Tartrate 25 MG Tab PO SCH (09:33)
[2019-11-25] MEDS: Benzonatate 100 MG Cap PO SCH ×2 (09:34→15:50)
[2019-11-25] MEDS: Losartan 100 MG Tab PO SCH (09:34)
[2019-11-25] MEDS: Rosuvastatin 10 MG Tab PO SCH (09:34)
[2019-11-25] MEDS: Insulin Glarg,Human.Rec.Analog 100 Unit/ML SUBCUT SCH (09:35)
[2019-11-25] MEDS: Enoxaparin 40 MG/0.4 ML Syringe SUBCUT SCH (09:36)
--- NOTE | 2019-11-25 12:38 | PCM.DCSUM1 ---
Discharge Summary - Hospital Course HPI Initial Comments: 69-year-old male with recent diagnosis of COVID-19. Patient was a poor historian, therefore some of the history differs from the emergency department providers note. Patient told me that he was diagnosed with COVID-19 this last , November 17, 2019. The emergency providers note states he was diagnosed on November 09 which is also a . Patient currently states he has had having shortness of breath, but was fairly elusive in regards to his other symptoms. It appears that he has had a dry cough, shortness of breath, low- grade fever, anorexia, and generalized weakness. Patient also told me he had no medical conditions but it appears he is a type II diabetic. When he presented to the emergency department he was hypoxemic and his oxygen saturation went to 91% on 2 L. When the provider stopped his oxygen it did drop back down to 82% on room air. Apparently he did not feel short of breath at that time. Apparently his is also been sick. Unknown where he contracted the SARS-CoV-2 virus. Initial labs were found to be: WBC 5.1, hemoglobin 14.8, platelets 178, neutrophils 81% with 0% bands, [id number] glucose 185, C-reactive protein 9.5, d-dimer 1.77, INR 1.04, sodium 133, potassium 2.9, BUN 21, creatinine 1.4, estimated GFR 50 (unknown baseline GFR) troponin 0 0.146, LDH 410, total bilirubin 1.6, AST 95, ALT 90, proBNP 559, albumin 2.9. Ferritin was elevated at 2210, lactic acid 1.6. ABG: pH 7.52, PCO2 35.2, PO2 60, bicarb 28.6, on 3 L nasal cannula. 2. CT angiogram of the chest showed no pulmonary embolism. Multifocal peripheral airspace opacity concerning for multi lobar pneumonia. Consider atypical variants. 3. Cardiomegaly and mild to moderate grade coronary atherosclerosis. 4. Prominent hilar lymph nodes are present. There are likely reactive to the pulmonary parenchymal process. EKG showed a sinus rhythm at 87 bpm. Right bundle branch block with left anterior fascicular block noted. Dr. Jason in cardiology from [facility] in [place] was consulted. He felt this could be myocarditis related to the patient's COVID status. He would recommend serial troponins and echo in the morning. Consider heparin if it is appropriate based on clinical picture. Assessment/Plan Comment:: 69-year-old male with COVID-19 pneumonia and possible myocarditis. * Oxygen saturations decreased on admission approximately 81% on room air. * Troponin elevated at 0.146. * Cardiology recommended trending troponin, echocardiogram, and heparin. * CT of the chest showed multifocal peripheral airspace opacity concerning for multi lobar pneumonia. Cardiomegaly. Prominent hilar lymph nodes present. * WBC 5.1, CRP 9.5, d-dimer 1.77, LDH 410, ferritin 2210 Acute renal injury versus chronic renal insufficiency Metabolic alkalosis likely secondary to volume contraction. Hyponatremia/hypokalemia * Given 40 mEq of potassium in the emergency department * Started on normal saline. * Need to be especially careful with fluid status in COVID patients. * Would benefit from old records Type 2 diabetes * On metformin, glipizide and Ozempic. * Unknown hemoglobin A1c. * Initial glucose 193 nonfasting Coronary artery disease, hypertension * Moderate grade coronary atherosclerosis found on CT angiogram of the chest * EKG significant for right bundle branch block with left anterior fascicular block. Anterior Q waves and left ventricular hypertrophy. * Home meds include metoprolol, enalapril, rosuvastatin, hydrochlorothiazide, and amlodipine Plan * Admit to floor * Start heparin drip * Serial troponins * Echocardiogram in the morning * FiO2 to keep SPO2 greater than 88% * Start remdesivir and dexamethasone * Rocephin and azithromycin * I spoke with the patient to provide information about remdesivir treatment. I offered the "patient and caregiver EU remdesivir fax sheet" to read and review. I stated the drug has been approved by an emergency use authorization process and has not fully been FDA reviewed or approved. Patient meets the EUA requirements. I shared that the drug may cause l liver abnormalities and infusion related side effects. Additionally, other side effects are possible but are not known as the drug has limited studies. I discussed there are other potential treatment options that are currently not FDA approved to treat COVID-19. Offered opportunity to ask questions and all questions were answered. Patient voiced understanding and agreed to proceed with treatment for Dimas Liconaar. * Gentle rehydration secondary to volume contraction and metabolic alkalosis. * Closely follow renal function. Consider Recinos catheter. * Strict I's and O's and daily weights. * Continue metoprolol, rosuvastatin, and amlodipine. * Start sliding scale insulin with glucose monitoring before each meal and bedtime. * Start alogliptin. Was recent study showing that diabetics on sitagliptin had a 50% reduction in mortality. We do not have sitagliptin on formulary. * Hold enalapril and hydrochlorothiazide secondary to renal function and hypovolemia. * CBC, CMP, magnesium, phosphorus, d-dimer, CRP, and hemoglobin A1c in the morning. * Procalcitonin on blood work in the ER. VTE prophylaxis with heparin. CODE STATUS: Patient was not clear about CODE STATUS but it appears he is a full code. Disposition: Admit to floor. Length of stay will be at least 5 days for remdesivir treatment. Diagnosis: Stroke: No - Discharge Data Discharge Date: 11/25/19 Discharge Disposition: Home, Self-Care 01 Condition: Stable - Referral to Home Health Primary Care Physician: John Hunt MD - Discharge Diagnosis/Problem(s) (1) Myocarditis due to COVID-19 virus SNOMED Code(s): 4513431758981263 ICD Code: U07.1 - COVID-19; I40.0 - INFECTIVE MYOCARDITIS Status: Acute (2) COVID-19 SNOMED Code(s): 593405204 ICD Code: U07.1 - COVID-19 Status: Acute (3) Diabetes type 2, uncontrolled SNOMED Code(s): 728564623, 390613943 ICD Code: E11.65 - TYPE 2 DIABETES MELLITUS WITH HYPERGLYCEMIA Status: Acute (4) Pneumonia due to 2019 novel coronavirus SNOMED Code(s): 456057570999537036 ICD Code: U07.1 - COVID-19; J12.89 - OTHER VIRAL PNEUMONIA Status: Acute (5) CAD (coronary artery disease) SNOMED Code(s): 58614444 ICD Code: I25.10 - ATHSCL HEART DISEASE OF [place] CORONARY ARTERY W/O ANG PCTRS Status: Acute (6) HTN (hypertension) SNOMED Code(s): 22732786 ICD Code: I10 - ESSENTIAL (PRIMARY) HYPERTENSION Status: Acute - Patient Summary/Data Consults: Consultations 11/24/19 10:48 PT Evaluation and Treatment [CONS] Routine Hospital Course: Plan:: 11/20/2019 69-year-old male with COVID-19 pneumonia and possible myocarditis. * Oxygen saturations decreased on admission approximately 81% on room air. * Troponin elevated at 0.146. * Cardiology recommended trending troponin, echocardiogram, and heparin. * CT of the chest showed multifocal peripheral airspace opacity concerning for multi lobar pneumonia. Cardiomegaly. Prominent hilar lymph nodes present. * WBC 5.1, CRP 9.5, d-dimer 1.77, LDH 410, ferritin 2210 Acute renal injury versus chronic renal insufficiency Metabolic alkalosis likely secondary to volume contraction. Hyponatremia/hypokalemia * Given 40 mEq of potassium in the emergency department * Started on normal saline. * Need to be especially careful with fluid status in COVID patients. * Would benefit from old records Type 2 diabetes * On metformin, glipizide and Ozempic. * Unknown hemoglobin A1c. * Initial glucose 193 nonfasting Coronary artery disease, hypertension * Moderate grade coronary atherosclerosis found on CT angiogram of the chest * EKG significant for right bundle branch block with left anterior fascicular block. Anterior Q waves and left ventricular hypertrophy. * Home meds include metoprolol, enalapril, rosuvastatin, hydrochlorothiazide, and amlodipine 11/21/2019 COVID-19 with pneumonia and myocarditis Reduced ejection fraction heart failure Cardiomegaly Blood cultures positive for gram-positive cocci * Echocardiogram, limited 1. Left ventricular ejection fraction 30 to 35%. 2. Global and severely decreased left ventricular systolic function 3. Impaired relaxation pattern of LV diastolic filling. Grade 1 4. Moderate proximal septal hypertrophy. 5. Mildly reduced right ventricular systolic function. 6. Mild aortic valve regurgitation. 7. Mild mitral valve regurgitation. 8. Mild tricuspid valve regurgitation. 9. No recent echocardiogram for comparison. * Respiratory support decreased overnight from 5 L to 4 L * No change in troponin with repeat troponin 0.147 * CBC 5.1, d-dimer 1.34, CRP 9.8 Acute renal injuryresolved, metabolic alkalosis/hyponatremia/hypokalemiaimproved * Estimated GFR greater than 60, creatinine 1.2, BUN 20 * Corrected sodium 142 * Potassium 3.4 * Bicarb 30 * Positive fluid balance and weight loss Type 2 diabetes * Blood sugars in the 200s * Hemoglobin A1c 8.1 Coronary artery disease, hypertension * Significant systolic dysfunction, see above * Blood pressure: Systolic blood pressure 130-146, diastolic blood pressure 69- 87 * On metoprolol tartrate 25 mg twice daily, Norvasc 5 mg daily, losartan 50 mg daily 11/22/2019 COVID-19 with pneumonia and myocarditis Reduced ejection fraction heart failure Cardiomegaly Blood cultures positive for gram-positive cocci * Currently on 4 L nasal cannula with improved air exchange. * D-dimer 1.41, CRP 7.7 * Troponin is down to 0.076 * Currently on remdesivir, dexamethasone, Rocephin, vancomycin, and azithromycin * Awaiting results of blood culture. Uncontrolled type 2 diabetes, coronary artery disease, hypertension, hyponatremia * Sodium 134 * BUN 19, creatinine 1.1, estimated GFR greater than 60 * Glucose as high as 305 * Started Lantus this morning. 11/23/2019 COVID-19 with pneumonia and myocarditis Reduced ejection fraction heart failure Cardiomegaly Blood cultures positive for coag negative staphStaph hominis SS hominis out of 1 of 4 tubes * Currently on 2 L nasal cannula with improved air exchange. * D-dimer 2.69, CRP 4.5 * Currently on remdesivir, dexamethasone, Rocephin, stop vancomycin, * Blood culture is most likely skin contaminant since it is a coag negative staph and only out of 1 of 4 tubes. * Completed azithromycin Uncontrolled type 2 diabetes, coronary artery disease, hypertension, hyp onatremia * Hemoglobin A1c 8.1 * Sodium 135 * BUN 20, creatinine 1.1, estimated GFR greater than 60 * Blood sugars still in the mid to upper 200s * Currently on Lantus 5 units daily 11/24/2019 COVID-19 with pneumonia and myocarditis Reduced ejection fraction heart failure Cardiomegaly Blood cultures positive for coag negative staphStaph hominis SS hominis out of 1 of 4 tubes * Currently on 2 L nasal cannula with improved air exchange. * Currently on remdesivir, dexamethasone, Rocephin * Blood culture is most likely skin contaminant. * Completed azithromycin Uncontrolled type 2 diabetes, coronary artery disease, hypertension, * Hemoglobin A1c 8.1 * Sodium 137 * Estimated GFR greater than 60 * Blood sugars improving * Currently on Lantus 5 units twice daily Elevated liver enzymes: AST 95, ALT 122, total bilirubin 0.8. Hypoalbuminemia: Albumin 2.4. Likely secondary to protein malnutrition not liver disease 11/25/2019 Patient is on room air at rest and requiring 1 L of ambulation. He will be discharged home on home O2. He received 2 units convalescent plasma, remdesivir, dexamethasone, Rocephin, and azithromycin. Discharged home to finish dexamethasone Monitor blood sugars. - Patient Instructions Diet: Diabetic Diet Activity: As Tolerated Driving: Do Not Drive Showering/Bathing: May Shower Other/Special Instructions: Please get an at home oximetry device. Check your oxygen level at least 4 times a day. You will be prescribed oxygen for activity, you would also likely benefit from wearing it at night when you are asleep. Check your blood sugar at least 4 times a day. If your blood sugar is consistently above 250 please call your primary care provider. Follow-up with your primary care provider in 2 weeks. - Discharge Plan *PRESCRIPTION DRUG MONITORING PROGRAM REVIEWED*: No *COPY OF PRESCRIPTION DRUG MONITORING REPORT IN PATIENT LYLA: No Prescriptions/Med Rec: dexAMETHasone [Dexamethasone] 6 mg PO Q24H #6 tablet Codeine/guaiFENesin [Robitussin AC] 5 ml PO Q4H PRN #120 ml PRN Reason: Cough Home Medications: Home Meds Ozempic. 0.5 mg SQ WEEKLY 11/20/19 [History] Rosuvastatin [Crestor] 5 mg PO DAILY 11/20/19 [History] Tamsulosin [Flomax] 0.4 mg PO DAILY 11/20/19 [History] amLODIPine [Norvasc] 7.5 mg PO DAILY 11/20/19 [History] hydroCHLOROthiazide [Hydrochlorothiazide] 25 mg PO DAILY 11/20/19 [History] metFORMIN [Glucophage] 1,000 mg PO BID 11/20/19 [History] Allopurinol [Zyloprim] 100 mg PO DAILY 11/21/19 [History] Aspirin [Halfprin] 81 mg PO DAILY 11/21/19 [History] Blood Sugar Diagnostic [Embrace Talk Test Strip] 1 each MC DAILY 11/21/19 [History] Losartan [Cozaar] 50 mg PO DAILY 11/21/19 [History] Metoprolol Tartrate 25 mg PO BID 11/21/19 [History] [place]-3 Fatty Acids/Fish Oil [Fish Oil 1,000 mg Capsule] 1 each PO BID 11/21/19 [History] Sildenafil [Viagra] 1 tab PO PRN 11/21/19 [History] Codeine/guaiFENesin [Robitussin AC] 5 ml PO Q4H PRN #120 ml 11/25/19 [Rx] Metoprolol Tartrate [Lopressor] 25 mg PO Q12H tablet 11/25/19 [Rx] dexAMETHasone [Dexamethasone] 6 mg PO Q24H #6 tablet 11/25/19 [Rx] Oxygen Therapy Mode: Nasal Cannula Oxygen Flow Rate (L/min): 2 Patient Handouts: Type 2 Diabetes Mellitus, Diagnosis, Adult, COVID-19 Frequently Asked Questions, COVID-19, Heart Failure Action Plan, Sepsis, Diagnosis, Adult, COVID-19: How to Protect Yourself and Others - [facility] Forms: ED Department Discharge Referrals: John Hunt MD [Primary Care Provider] - 12/05/19 7:50 am (tplease attend the scheduled follow up appointment as listed) - Discharge Summary/Plan Comment DC Time >30 min.: Yes - General Info Date of Service: 11/25/19 Admission Dx/Problem (Free Text: Admission Diagnosis/Problem Admission Diagnosis/Problem Hypoxia Subjective Update: Feeling much better. Appetite is good. Functional Status: Reports: Pain Controlled - Review of Systems General: Reports: No Symptoms HEENT: Reports: No Symptoms Pulmonary: Reports: No Symptoms Cardiovascular: Reports: No Symptoms Gastrointestinal: Reports: No Symptoms Musculoskeletal: Reports: No Symptoms Skin: Reports: No Symptoms Psychiatric: Reports: No Symptoms - Patient Data Vitals - Most Recent: Last Vital Signs Temp 97.9 F 11/25/19 09:33 Pulse 81 11/25/19 09:33 Resp 16 11/25/19 09:33 BP 138/82 11/25/19 09:34 Pulse Ox 93 L 11/25/19 10:15 Weight - Most Recent: 114.986 kg I&O - Last 24 hours: Intake & Output 11/24/19 11/25/19 11/25/19 22:59 06:59 14:59 Intake Total 1240 450 Output Total 1200 900 Balance 40 -450 Lab Results - Last 24 hrs: Laboratory Results - last 24 hr 11/24/19 11/24/19 11/25/19 Range/Units 17:43 21:45 05:27 Sodium 138 (136-145) mEq/L Potassium 4.0 (3.5-5.1) mEq/L Chloride 102 (98-107) mEq/L Carbon Dioxide 25 (21-32) mEq/L Anion Gap 15.0 (5-15) BUN 21 H (7-18) mg/dL Creatinine 0.7 (0.7-1.3) mg/dL Est Cr Clr Drug Dosing 112.54 mL/min Estimated GFR (MDRD) > 60 (>60) mL/min BUN/Creatinine Ratio 30.0 H (14-18) Glucose 303 H (83-115) mg/dL POC Glucose 266 H 324 H (83-110) mg/dL Calcium 8.2 L (8.5-10.1) mg/dL Total Bilirubin 0.7 (0.2-1.0) mg/dL AST 64 H (15-37) U/L ALT 115 H (16-63) U/L Alkaline Phosphatase 45 L (46-116) U/L Total Protein 5.9 L (6.4-8.2) g/dl Albumin 2.5 L (3.4-5.0) g/dl Globulin 3.4 gm/dL Albumin/Globulin Ratio 0.7 L (1-2) 11/25/19 Range/Units 05:33 Sodium (136-145) mEq/L Potassium (3.5-5.1) mEq/L Chloride (98-107) mEq/L Carbon Dioxide (21-32) mEq/L Anion Gap (5-15) BUN (7-18) mg/dL Creatinine (0.7-1.3) mg/dL Est Cr Clr Drug Dosing mL/min Estimated GFR (MDRD) (>60) mL/min BUN/Creatinine Ratio (14-18) Glucose (83-115) mg/dL POC Glucose 225 H (83-110) mg/dL Calcium (8.5-10.1) mg/dL Total Bilirubin (0.2-1.0) mg/dL AST (15-37) U/L ALT (16-63) U/L Alkaline Phosphatase (46-116) U/L Total Protein (6.4-8.2) g/dl Albumin (3.4-5.0) g/dl Globulin gm/dL Albumin/Globulin Ratio (1-2) JOSEPHINE Results - Last 24 hrs: Microbiology 11/20/19 12:20 Aerobic Blood Culture - Preliminary Blood - Venous - Lab Draw NO GROWTH AFTER 4 DAYS Anaerobic Blood Culture - Preliminary NO GROWTH AFTER 4 DAYS 11/20/19 12:10 Aerobic Blood Culture - Final Blood - Venous Staph Hominis Ss Hominis Anaerobic Blood Culture - Preliminary NO GROWTH AFTER 4 DAYS Med Orders - Current: Current Medications Acetaminophen (Tylenol) 650 mg PO Q4H PRN PRN Reason: Pain (Mild 1-3)/fever Last Admin: 11/22/19 00:16 Dose: 650 mg Documented by: Alogliptin Benzoate (Alogliptin) 25 mg PO DAILY [facility] Last Admin: 11/25/19 09:34 Dose: 25 mg Documented by: Amlodipine Besylate (Norvasc) 5 mg PO DAILY [facility] Last Admin: 11/25/19 09:30 Dose: 5 mg Documented by: Aspirin (Halfprin) 81 mg PO DAILY [facility] Last Admin: 11/25/19 09:33 Dose: 81 mg Documented by: Benzonatate (Tessalon Perles) 100 mg PO TID [facility] Last Admin: 11/25/19 09:34 Dose: 100 mg Documented by: Dexamethasone (Dexamethasone) 6 mg PO Q24H [facility] Stop: 11/29/19 20:01 Last Admin: 11/24/19 21:55 Dose: 6 mg Documented by: Dextrose/Water (Dextrose 50% In Water) 50 ml IVPUSH ASDIRECTED PRN PRN Reason: Hypoglycemia Enoxaparin Sodium (Lovenox) 40 mg SUBCUT BID [facility] Last Admin: 11/25/19 09:36 Dose: 40 mg Documented by: Guaifenesin/Codeine Phosphate (Robitussin Ac) 5 ml PO Q4H PRN PRN Reason: Cough Last Admin: 11/24/19 21:51 Dose: 5 ml Documented by: Insulin Glargine (Lantus) 5 unit SUBCUT BID [facility] Last Admin: 11/25/19 09:35 Dose: 5 units Documented by: Insulin Human Lispro (Humalog) 0 unit SUBCUT QIDACANDBED [facility]; Protocol Last Admin: 11/25/19 09:29 Dose: 4 units Documented by: Losartan Potassium (Cozaar) 50 mg PO DAILY [facility] Last Admin: 11/25/19 09:34 Dose: 50 mg Documented by: Metoprolol Tartrate (Lopressor) 25 mg PO Q12H [facility] Last Admin: 11/25/19 09:33 Dose: 25 mg Documented by: Rosuvastatin Calcium (Crestor) 5 mg PO DAILY [facility] Last Admin: 11/25/19 09:34 Dose: 5 mg Documented by: Tamsulosin HCl (Flomax) 0.4 mg PO DAILY [facility] Last Admin: 11/25/19 09:30 Dose: 0.4 mg Documented by: Discontinued Medications Enoxaparin Sodium (Lovenox) 40 mg SUBCUT BEDTIME [facility] Enoxaparin Sodium (Lovenox) 40 mg SUBCUT DAILY [facility] Last Admin: 11/23/19 08:45 Dose: 40 mg Documented by: Heparin Sodium (Porcine) (Heparin Sodium) 4,000 units IVPUSH ONETIME ONE Stop: 11/20/19 20:46 Last Admin: 11/20/19 22:45 Dose: 4,000 units Documented by: Heparin Sodium (Porcine) (Heparin Sodium) 1,000 units IV ONETIME ONE Stop: 11/21/19 04:36 Last Admin: 11/21/19 04:54 Dose: 1,000 units Documented by: Heparin Sodium (Porcine) (Heparin Sodium) 1,000 units IV ONETIME ONE Stop: 11/21/19 13:01 Last Admin: 11/21/19 13:00 Dose: 1,000 units Documented by: Heparin Sodium (Porcine) (Heparin Sodium) Confirm Administered Dose 5,000 units .ROUTE .STK-MED ONE Stop: 11/21/19 12:48 Last Admin: 11/21/19 13:22 Dose: Not Given Documented by: Sodium Chloride (Normal Saline) 1,000 mls @ 150 mls/hr IV ONETIME ONE Stop: 11/20/19 18:30 Last Admin: 11/20/19 12:12 Dose: 150 mls/hr Documented by: Sodium Chloride (Normal Saline) 100 mls @ 60 mls/hr IV ASDIRECTED [facility] Last Admin: 11/20/19 15:05 Dose: 60 mls/hr Documented by: Remdesivir 200 mg/ Sodium (Chloride) 250 mls @ 250 mls/hr IV ONETIME ONE Stop: 11/20/19 19:42 Last Admin: 11/20/19 22:43 Dose: 250 mls/hr Documented by: Remdesivir 100 mg/ Sodium (Chloride) 100 mls @ 100 mls/hr IV Q24H [facility] Stop: 11/24/19 20:59 Last Admin: 11/24/19 21:58 Dose: 100 mls/hr Documented by: Ceftriaxone Sodium 2 gm/ (Sodium Chloride) 100 mls @ 200 mls/hr IV Q24H [facility] Stop: 11/24/19 20:29 Last Admin: 11/24/19 21:57 Dose: 200 mls/hr Documented by: Azithromycin 500 mg/ Sodium (Chloride) 250 mls @ 250 mls/hr IV Q24H [facility] Stop: 11/22/19 21:59 Last Admin: 11/22/19 21:31 Dose: 250 mls/hr Documented by: Heparin Sodium/Dextrose (Heparin 25,000 Units In D5w 500 Ml) 25,000 units in 500 mls @ 20 mls/hr IV TITRATE [facility]; Protocol Last Admin: 11/21/19 19:32 Dose: 1,445.4 units/hr, 28.908 mls/hr Documented by: Sodium Chloride (Normal Saline) 250 mls @ 125 mls/hr IV ASDIRECTED [facility] Stop: 11/21/19 18:00 Last Admin: 11/21/19 13:23 Dose: 125 mls/hr Documented by: Vancomycin HCl 2 gm/ Sodium (Chloride) 500 mls @ 250 mls/hr IV ONETIME ONE Stop: 11/21/19 17:59 Last Admin: 11/21/19 17:45 Dose: 250 mls/hr Documented by: Vancomycin HCl 1.75 gm/ Sodium (Chloride) 500 mls @ 250 mls/hr IV Q12H [facility] Last Admin: 11/23/19 07:02 Dose: Not Given Documented by: Vancomycin HCl 2 gm/ Sodium (Chloride) 500 mls @ 250 mls/hr IV Q12H [facility] Last Admin: 11/23/19 08:47 Dose: 250 mls/hr Documented by: Magnesium Sulfate 2 gm/ Premix 50 mls @ 25 mls/hr IV ONETIME ONE Stop: 11/23/19 23:28 Last Admin: 11/23/19 22:23 Dose: 25 mls/hr Documented by: Insulin Glargine (Lantus) 5 unit SUBCUT DAILY [facility] Last Admin: 11/23/19 08:44 Dose: 5 units Documented by: Iopamidol (Isovue-370 (76%)) 100 ml IVPUSH ONETIME ONE Stop: 11/20/19 14:17 Last Admin: 11/20/19 15:05 Dose: 100 ml Documented by: Metoprolol Tartrate (Lopressor) 50 mg PO DAILY [facility] Last Admin: 11/21/19 08:10 Dose: 50 mg Documented by: Potassium Chloride (Klor-Con M20) 40 meq PO ONETIME ONE Stop: 11/20/19 15:31 Last Admin: 11/20/19 15:55 Dose: 40 meq Documented by: Potassium Chloride (Klor-Con M20) 40 meq PO ONETIME ONE Stop: 11/21/19 20:56 Last Admin: 11/21/19 21:33 Dose: 40 meq Documented by: Potassium Chloride (Klor-Con M20) 40 meq PO ONETIME ONE Stop: 11/23/19 21:29 Last Admin: 11/23/19 21:40 Dose: 40 meq Documented by: Sodium Chloride (Saline Flush) 10 ml FLUSH ONETIME ONE Stop: 11/20/19 14:17 Last Admin: 11/20/19 15:05 Dose: 10 ml Documented by: Vancomycin HCl (Pharmacy To Dose - Vancomycin) 1 dose .XX ASDIRECTED PRN PRN Reason: RX TO DOSE VANCO - Exam Quality Assessment: Reports: Supplemental Oxygen General: Reports: Alert, Oriented HEENT: Reports: Pupils Equal, Mucous Membr. Moist/[place] Neck: Reports: Supple Lungs: Reports: Clear to Auscultation, Normal Respiratory Effort Cardiovascular: Reports: Regular Rate, Regular Rhythm GI/Abdominal Exam: Normal Bowel Sounds, No Distention, No Abnormal Bruit Extremities: Normal Inspection, No Pedal Edema, Normal Capillary Refill Skin: Reports: Warm, Dry, Intact Neurological: Reports: No New Focal Deficit Psy/Mental Status: Reports: Alert, Normal Affect, Normal Mood
== END 2019-11-25 13:38 | disposition home or self-care (01) | DRG 177 ==
LOC: JD.ED 10:07 → JD.MS 15:36
PROVIDERS: ADMIT Family Medicine; ATTEND Family Medicine
PROC: XW033E5 Introduction of Remdesivir Anti-infective into Peripheral Vein, Percutaneous Approach, New Technology Group 5 (ICD-10-PCS; principal; 2019-11-20)
DX: U07.1 COVID-19 (principal); R09.02 Hypoxemia; R79.1 Abnormal coagulation profile; I10 Essential (primary) hypertension; J12.89 Other viral pneumonia; E11.9 Type 2 diabetes mellitus without complications; N17.9 Acute kidney failure, unspecified; E87.1 Hypo-osmolality and hyponatremia; E87.3 Alkalosis; Z79.84 Long term (current) use of oral hypoglycemic drugs; I13.0 Hypertensive heart and chronic kidney disease with heart failure and stage 1 through stage 4 chronic kidney disease, or unspecified chronic kidney disease; I50.22 Chronic systolic (congestive) heart failure; E46 Unspecified protein-calorie malnutrition; R78.81 Bacteremia; I51.4 Myocarditis, unspecified; E86.1 Hypovolemia; E11.65 Type 2 diabetes mellitus with hyperglycemia; N18.9 Chronic kidney disease, unspecified; E11.22 Type 2 diabetes mellitus with diabetic chronic kidney disease; E87.6 Hypokalemia; E78.00 Pure hypercholesterolemia, unspecified; M19.90 Unspecified osteoarthritis, unspecified site; I25.10 Atherosclerotic heart disease of native coronary artery without angina pectoris; Z79.899 Other long term (current) drug therapy; Z99.81 Dependence on supplemental oxygen; Z79.4 Long term (current) use of insulin; Z88.0 Allergy status to penicillin; Z90.49 Acquired absence of other specified parts of digestive tract
CPT/HCPCS: 36415; 36600; 71045; 71275; 80053; 82728; 82803; 82962; 83605; 83615; 83735; 83880; 84484; 85007; 85027; 85379; 85610; 85730; 86140; 86738; 87040 ×2; 87077; 87186; 93005; 96361; 99285; J7030; J7050; Q9967; 36430; 80202; 83036; 84100; 85025; 86900; 86901; 93010; 93306; 94667; 94668; 94760; 94761; 96365; 96367; 96368; 97161-GP; A9270-GY; J0456; J0696; J1644; J1650; J1815-GY; J3370; J3475; J7040; J8540; P9017